=== PATIENT | female | born 1945 | race Caucasian/White ===

== ENCOUNTER → 2016-08-16 | Outpatient (CLI) | payer OTHER ==
--- NOTE | 2016-08-16 13:26 | MA ---
Diagnostic Digital Mammogram Right Breast With iCAD Analysis Reason for examination: Evaluate possible developing nodule in the upper-outer anterior right breast noted on the screening study July 15, 2016. Technique: Oblique and craniocaudal spot compression views are obtained. Also, a true lateral is perf ormed. The examination is processed by the iCAD computer-aided detection system. Comparison to older studies dating back to May 2008. Findings: The abnormality does not persist on diagnostic evaluation and it was probably related to guajardo perimposition of normal glandular elements on the screening study. The appearance of the right breas t on diagnostic assessment has not changed significantly compared to the older studies. Impression: Negative diagnostic mammography. BI-RADS: 1. Recommendation: Resume routine mammographic screening in one year as long as physical examination is negative. A verbal report was given to the patient. [facility] with send a result letter.
== END ==
LOC: FIMAGING 12:36
PROVIDERS: ATTEND Family Medicine
DX: Z12.39 Encounter for other screening for malignant neoplasm of breast (principal); N63 Unspecified lump in breast
CPT/HCPCS: G0206

== ENCOUNTER 2016-11-22 09:33 | Inpatient (IN) | payer OTHER ==
[2016-11-22] MEDS ORDERED: NS 1,000 ML IV ONE (09:41)
--- NOTE | 2016-11-22 09:43 | EDPHY ---
H & P Time Seen by Provider: 11/22/16 09:41 HPI/ROS: CHIEF COMPLAINT: Weakness, fall HISTORY OF PRESENT ILLNESS: Patient is a 71-year-old female who comes to the emergency department via EMS after a fall this morning. She states that she has had body aches and been feeling increasingly weak over the last 5-6 days. Today she fell trying to go to the bathroom. She also has mild diarrhea that is nonbloody. She reports that she is being followed by her primary care doctor for low "CBC" and has follow-up lab work in 3 weeks. she has a history of colon cancer that was resected 10 years ago in [place]. She states she is currently cancer free. She does not have any history of liver or renal disease. She denies recent fevers. No vomiting. She denies any pain or injury from the fall today. She was placed in a cervical collar by EMS. She states that she is extremely weak and feels lightheaded when she tries to stand. She has had swelling and bruising to her lower extremities over the last few days. She is pale in appearance and hypotensive. REVIEW OF SYSTEMS: Constitutional: denies: chills, fever, recent illness, recent injury EENTM: denies: blurred vision, double vision, nose congestion Respiratory: denies: cough, shortness of breath Cardiac: denies: chest pain, irregular heart rate, lightheadedness, palpitations Gastrointestinal/Abdominal: denies: abdominal pain, diarrhea, nausea, vomiting, blood streaked stools Genitourinary: denies: dysuria, frequency, hematuria, pain Musculoskeletal: See HPI Skin: See HPI Neurological: denies: headache, numbness, paresthesia, tingling, dizziness, weakness Hematologic/Lymphatic: denies: blood clots, easy bleeding, easy bruising Immunologic/allergic: denies: HIV/AIDS, transplant EXAM: GENERAL: Well-appearing, well-nourished and in no acute distress. HEAD: Atraumatic, normocephalic. EYES: Pupils equal round and reactive to light, extraocular movements intact, sclera anicteric, conjunctiva are normal. ENT: TMs normal, nares patent, oropharynx clear without exudates. Moist mucous membranes. NECK: Normal range of motion, supple without lymphadenopathy or JVD. LUNGS: Breath sounds clear to auscultation bilaterally and equal. No wheezes rales or rhonchi. HEART: Regular rate and rhythm without murmurs, rubs or gallops. ABDOMEN: Soft, nontender, normoactive bowel sounds. No guarding, no rebound. No masses appreciated. Rectal exam performed, good tone, grossly negative stool BACK: No CVA tenderness, no spinal tenderness, step-offs or deformities EXTREMITIES: Normal range of motion, no pitting or edema. No clubbing or cyanosis. 1+ pitting edema in left leg NEUROLOGICAL: Cranial nerves II through XII grossly intact. Normal speech, normal gait. 5/5 strength, normal movement in all extremities, normal sensation PSYCH: Normal mood, normal affect. SKIN: Diffuse bruising and swelling particularly over the lower extremities but some bruises of various ages throughout upper extremities and back as well. Source: Patient, EMS, Old records Exam Limitations: No limitations - Medical/Surgical History Hx Asthma: No Hx Chronic Respiratory Disease: No Hx Diabetes: No Hx Cardiac Disease: No Hx Renal Disease: No Hx Cirrhosis: No Hx Alcoholism: No - Family History Significant Family History: No pertinent family hx - Social History Smoking Status: Never smoked Alcohol Use: Sober Drug Use: None Constitutional: Initial Vital Signs Temperature (C) 35 C L 11/22/16 09:33 Heart Rate 82 11/22/16 09:33 Respiratory Rate 20 11/22/16 09:33 Blood Pressure 82/52 L 11/22/16 09:33 O2 Sat (%) 93 11/22/16 09:33 O2 Delivery Mode Nasal Cannula O2 (L/minute) 3 Allergies/Adverse Reactions: No Known Allergies Allergy (Unverified 11/22/16 09:49) Home Medications: Medication Instructions Recorded ALPRAZolam [Xanax 0.5 MG (*)] 0.5 mg PO HS 11/22/16 Cholecalciferol Vit D3 [Vitamin D3 1,000 units PO DAILY 11/22/16 (*)] Levothyroxine [Synthroid 75 mcg 75 mcg PO DAILY06 11/22/16 (*)] Benton-3 Fatty Acids [Fish Oil 1000 1,000 mg PO DAILY 11/22/16 mg (*)] Ondansetron Odt [Zofran Odt 4 mg 4 mg PO Q4 PRN #20 tab 11/22/16 (RX)] QUEtiapine FUMARATE [Seroquel 25 100 mg PO HS 11/22/16 mg (*)] lamoTRIgine [LamICTAL 100 MG (*)] 100 mg PO DAILY 11/22/16 Medical Decision Making - Diagnostics Imaging Results: X-ray: chest x-ray was obtained. I viewed the images myself on the PACS system. My interpretation of the images is: Central line in adequate position . The radiologist interpretation is pending. Imaging: Discussed imaging studies w/ call worker Radiologist Procedures: Procedure: Ultrasound guidance: Using the linear probe covered in a sterile sheath, a short axis of the vein was obtained. The vein was completely compressible and was identified as separate from the adjacent non-compressible arterial structure. Under real-time guidance, the introducer needle was observed up to the vein, and then punctured it. These images were saved on the database. Central line placement: The indication for the procedure was obtained. After verbal informed consent from patient; the risks were explained including bleeding, infection, and collapsed lung. Maximal sterile barrier technique was uses including cap, gown, sterile gloves, large sheet, hand washing and chlorhexidine prep. The area anesthetized with 1% lidocaine. The right IJ was punctured with a 19 gauge finder needle, then a wire introducer was placed, a triple-lumen was placed using Seldinger technique. There were no complications. Blood return low pressure, dark blood. The patient tolerated procedure well. CXR results: Pending as interpreted by myself. Radiologist interpretation is pending. The procedure was performed by myself. After reviewing the chest x-ray the patient's central line was pulled back 3 cm and replaced under sterile conditions. Repeat x-ray pending. ED Course/Re-evaluation: The patient's hypotensive. Only 1 IV established. I placed a central line for better access and rapid resuscitation. The patient's hemoglobin is low and transfusion is already been ordered. Her platelets however sufficient so we will hold platelet transfusion at this point. 10:50 a.m. I spoke with Tessa recommended the patient go to [facility] with Dr. Panchal Critical Care Time: Critical care time spent by me, Dr. Rowe exclusive with this patient was 35 minutes, exclusive of the PA time exclusive of procedures. The organ system that was at risk was cardiovascular and I gave IV fluids, blood transfusion and consultation to prevent worsening of the patient's condition - Data Points Laboratory Results: Laboratory Results 11/22/16 10:30 11/22/16 10:25 11/22/16 11/22/16 11/22/16 10:25 10:25 10:25 Haptoglobin 71 mg/dL mg/dL (30 - 200) Total Protein (PEP) 3.8 g/dL L g/dL (6.3-8.2) Albumin (PEP) 2.0 g/dL L g/dL (3.4-4.7) Albumin/Globulin Ratio 1.11 Btreo-3-Hxsregkld 0.5 g/dL H g/dL (0.1-0.3) Bdrte-7-Qpkszbgge 0.5 g/dL L g/dL (0.6-1.0) Beta Globulins 0.4 g/dL L g/dL (0.7-1.2) Gamma Globulins 0.4 g/dL L g/dL (0.6-1.6) PEP Impression Betty Cifuentes MD [employer] Electrophor Betty Cifuentes MD Free [place] LC, Quant 2.56 mg/dL H mg/dL Free Lambda LC, Quant 2.22 mg/dL mg/dL Free [place]/Lambda Ratio 1.15 Patient ABO/Rh A POSITIVE Antibody Screen NEGATIVE ANTWON, Polyspecific NEGATIVE (NEGATIVE) Crossmatch IS Only See Detail Medications Given: Discontinued Medications Sodium Chloride (Ns) 1,000 mls @ 0 mls/hr IV ONCE ONE PRN Reason: Wide Open Stop: 11/22/16 09:42 Last Admin: 11/22/16 09:54 Dose: 1,000 mls Phytonadione 10 mg/ Sodium (Chloride) 51 mls @ 102 mls/hr IV ONCE ONE Stop: 11/23/16 12:47 Last Admin: 11/23/16 13:03 Dose: 51 mls Albumin Human (Flexbumin 25 % (Premix)) 100 mls @ 0 mls/hr IV ONCE ONE PRN Reason: As Directed Stop: 11/23/16 14:01 Last Admin: 11/23/16 14:08 Dose: 100 mls Polyethylene Glycol/Electrolytes (Golytely) 4,000 ml PO ONCE ONE Stop: 11/23/16 13:58 Last Admin: 11/23/16 15:11 Dose: 4,000 ml Departure - Departure Disposition: [facility] Acute Clinical Impression: Anemia Qualifiers: Anemia type: iron deficiency Iron deficiency anemia type: chronic blood loss Qualified Code(s): D50.0 - Iron deficiency anemia secondary to blood loss ( chronic) Hypotension Qualifiers: Hypotension type: other hypotension type Qualified Code(s): I95.89 - Other hypotension GI bleed Qualifiers: GI bleed type/associated pathology: unspecified gastrointestinal hemorrhage type Qualified Code(s): K92.2 - Gastrointestinal hemorrhage, unspecified Condition: Critical
[2016-11-22 09:55] LABS: ADD DIFF? NO; ADD MORPH? YES; ADD SCAN? NO
[2016-11-22 09:59] LABS: ABSOLUTE IMMATURE GRANULOCYTES 0.04 10^3/uL (0.00-0.10); ATYPICAL LYMPHOCYTE FLAG 0 (0-99); FRAGMENT RBC FLAG 20 (0-99); LEFT SHIFT FLG 0 (0-99); LIPEMIA HEMOLYSIS FLAG 80 (0-99); MEAN CELL HEMOGLOBIN 30.5 pg (27.9-34.1); MEAN CELL HEMOGLOBIN CONCENTR. 30.8 g/dL (32.4-36.7); MEAN CELL VOLUME 98.9 fL (81.5-99.8); MEAN PLATELET VOLUME 11.7 fL (8.7-11.7); PLATELET CLUMPS FLAG 0 (0-99); PLATELET COUNT 104 10^3/uL (150-400); RED BLOOD CELL COUNT 1.87 10^6/uL (4.18-5.33); RED CELL DISTRIBUTION WIDTH 15.6 % (11.5-15.2)
[2016-11-22 10:02] LABS: HEMATOCRIT 18.5 % (38.0-47.0)
[2016-11-22 10:03] LABS: HEMOGLOBIN 5.7 g/dL (12.6-16.3)
[2016-11-22 10:04] LABS: APTT 26.9 SEC (23.0-38.0); INR 1.59 (0.83-1.16)
[2016-11-22 10:39] LABS: MACROCYTES 1+; MICROCYTES 1+; PLATELET ESTIMATE DECREASED (ADEQ); POLYCHROMASIA 1+
[2016-11-22 11:08] LABS: ANION GAP 10 mEq/L (8-16); CALCIUM 6.7 mg/dL (8.5-10.4); CARBON DIOXIDE 17 mEq/l (22-31); CHLORIDE 108 mEq/L (97-110); CREATININE 1.5 mg/dL (0.6-1.0); ETHANOL SERUM < 10 mg/dL (0-10); GLOMERULAR FILTRATION RATE 34; GLUCOSE 101 mg/dL (70-100); POTASSIUM 3.3 mEq/L (3.5-5.2); SODIUM 135 mEq/L (134-144)
[2016-11-22] MEDS ORDERED: ONDANSETRON 4 MG/2 ML VIAL IVP PRN (11:40)
[2016-11-22] MEDS ORDERED: ONDANSETRON DISINTEGRATING 4 MG TAB PO PRN (11:40)
[2016-11-22 11:48] LABS: HEMATOCRIT 18.5 % (38.0-47.0)
--- NOTE | 2016-11-22 11:53 | PDGENHP ---
History and Physical - Chief Complaint Acute fall - History of Present Illness PCP: Dr. Mixon HPI: 71-year-old female presenting with acute fall characterized as mechanical with associated lightheadedness, generalized weakness, myalgias with the onset of the fall on the day of presentation and no trauma reported by the patient. She reports that this occurred in the context of experiencing myalgias approximately 5-6 days ago with resultant nonproductive cough, weakness, loose bowel movements, anorexia. She denies any black or bloody bowel movements. She denies any hemoptysis or hematemesis. She reports that prior to her onset of symptoms she had otherwise been feeling well. She had made recent Synthroid dose adjustments couple months ago at the direction of her primary care provider. She has also been told that her blood counts were somewhat abnormal several months ago and her primary care provider has been periodically monitoring. The patient is unclear as to which cell lines were unusual but our lab data demonstrates that she had a thrombocytopenia with a stable platelet count around 100,000, but no e/o anemia. The patient does report that her lightheadedness is exacerbated by standing and this is what appeared to have precipitated her mechanical fall. Her diet has been particularly poor and is the results of a poor appetite, resulting in only a scant amount of solids and liquids over the past couple days. She has also noted diffuse ecchymoses which have been worsening over the past several months. History Information - Allergies/Home Medication List Allergies/Adverse Reactions: No Known Allergies Allergy (Unverified 11/22/16 09:49) Home Medications: ALPRAZolam 11/22/16 [Last Taken Unknown] LEVOTHYROXINE SODIUM 11/22/16 [Last Taken Unknown] LaMICtal 11/22/16 [Last Taken Unknown] Seroquel 11/22/16 [Last Taken Unknown] I have personally reviewed and updated: family history, medical history, social history, surgical history - Past Medical History Additional medical history: Hypothyroidism. Bipolar disease, unclear type. Colon cancer diagnosed approximately 10 years ago, surgically cured, last surveillance 1 year ago with colonoscopy and CT imaging in [place] - Surgical History Additional surgical history: Colon surgery - Family History Additional family history: No family history of venous thromboembolism - Social History Smoking Status: Former smoker Alcohol Use: Sober Drug Use: None Additional social history: Independent in her ADLs, moved to [place] from [place] approximately 1 year Review of Systems ROS: 10pt was reviewed & negative except for what was stated in HPI & below Constitutional: Reports: weakness, other (Lightheadedness, anorexia) Respiratory: Reports: cough Physical Exam Temp Pulse Resp BP Pulse Ox 35 C L 82 15 76/47 L 94 11/22/16 09:33 11/22/16 10:00 11/22/16 10:00 11/22/16 10:00 11/22/16 10:00 Constitutional: no apparent distress, appears nourished, not in pain, other ( Pale-appearing) Eyes: PERRL, anicteric sclera, EOMI, pale conjunctiva Ears, Nose, Mouth, Throat: hearing normal, other (Tacky mucous membranes) Cardiovascular: tachycardia (Intermittently), edema (Left lower extremity 1+), No systolic murmur, No irregularly irregular Respiratory: no respiratory distress, no rales or rhonchi, clear to auscultation Gastrointestinal: normoactive bowel sounds, soft, non-tender abdomen, no palpable masses Skin: other (Scattered, dense ecchymoses over her bilateral upper extremities, dorsum is of her wrists, densely in the lower extremities, left greater than right) Musculoskeletal: full muscle strength, no muscle tenderness, normal joint ROM, no joint effusions Neurologic: AAOx3, sensation intact bilaterally, No weakness (Motor strength is objectively 5/5 bilateral upper and lower extremities), No facial droop Psychiatric: interacting appropriately, not anxious, not encephalopathic, thought process linear Lab Data & Imaging Review 11/22/16 09:30 11/22/16 10:25 WBC 4.05 10^3/uL (3.80-9.50) 11/22/16 09:30 RBC 1.87 10^6/uL (4.18-5.33) L 11/22/16 09:30 Hgb 5.7 g/dL (12.6-16.3) L* 11/22/16 09:30 Hct 18.5 % (38.0-47.0) L 11/22/16 09:30 MCV 98.9 fL (81.5-99.8) 11/22/16 09:30 MCH 30.5 pg (27.9-34.1) 11/22/16 09:30 MCHC 30.8 g/dL (32.4-36.7) L 11/22/16 09:30 RDW 15.6 % (11.5-15.2) H 11/22/16 09:30 Plt Count 104 10^3/uL (150-400) L 11/22/16 09:30 MPV 11.7 fL (8.7-11.7) 11/22/16 09:30 Neut % (Auto) 75.9 % (39.3-74.2) H 11/22/16 09:30 Lymph % (Auto) 16.0 % (15.0-45.0) 11/22/16 09:30 [place] % (Auto) 6.4 % (4.5-13.0) 11/22/16 09:30 Eos % (Auto) 0.5 % (0.6-7.6) L 11/22/16 09:30 Baso % (Auto) 0.2 % (0.3-1.7) L 11/22/16 09:30 Nucleat RBC Rel Count 0.0 % (0.0-0.2) 11/22/16 09:30 Absolute Neuts (auto) 3.07 10^3/uL (1.70-6.50) 11/22/16 09:30 Absolute Lymphs (auto) 0.65 10^3/uL (1.00-3.00) L 11/22/16 09:30 Absolute Monos (auto) 0.26 10^3/uL (0.30-0.80) L 11/22/16 09:30 Absolute Eos (auto) 0.02 10^3/uL (0.03-0.40) L 11/22/16 09:30 Absolute Basos (auto) 0.01 10^3/uL (0.02-0.10) L 11/22/16 09:30 Absolute Nucleated RBC 0.00 10^3/uL (0-0.01) 11/22/16 09:30 Immature Gran % 1.0 % (0.0-1.1) 11/22/16 09:30 Immature Gran # 0.04 10^3/uL (0.00-0.10) 11/22/16 09:30 Platelet Estimate DECREASED (ADEQ) L 11/22/16 09:30 Polychromasia 1+ H 11/22/16 09:30 Microcytic Cells 1+ H 11/22/16 09:30 Oval Macrocytes 1+ H 11/22/16 09:30 PT 19.0 SEC (12.0-15.0) H 11/22/16 09:30 INR 1.59 (0.83-1.16) H 11/22/16 09:30 APTT 26.9 SEC (23.0-38.0) 11/22/16 09:30 Sodium 135 mEq/L (134-144) 11/22/16 10:25 Potassium 3.3 mEq/L (3.5-5.2) L 11/22/16 10:25 Chloride 108 mEq/L (97-110) 11/22/16 10:25 Carbon Dioxide 17 mEq/l (22-31) L 11/22/16 10:25 Anion Gap 10 mEq/L (8-16) 11/22/16 10:25 BUN 42 mg/dL (7-23) H 11/22/16 10:25 Creatinine 1.5 mg/dL (0.6-1.0) H 11/22/16 10:25 Estimated GFR 34 11/22/16 10:25 Glucose 101 mg/dL (70-100) H 11/22/16 10:25 Calcium 6.7 mg/dL (8.5-10.4) L 11/22/16 10:25 Stool Occult Bld Scrn POSITIVE (NEGATIVE) H 11/22/16 Unknown Ethyl Alcohol < 10 mg/dL (0-10) 11/22/16 10:25 Patient ABO/Rh A POSITIVE 11/22/16 10:25 Antibody Screen NEGATIVE 11/22/16 10:25 Crossmatch IS Only See Detail 11/22/16 10:25 Visualized and Interpreted Chest x-ray results: Yes Chest X-Ray results: no infiltrate Assessment & Plan Assessment: 71-year-old female presenting with acute hypotension in the setting of anemia, resulting in acute kidney injury Plan: 1. Hypotension. Acute, new problem this provider, further workup indicated. Unclear whether this is secondary to hypovolemia versus rapid blood loss versus cardiogenic. The patient does not appear to have evidence of active infection but her recent myalgias and weakness may be subtle signs of infection. -send venous lactic acid -send blood cultures, urinalysis -central venous catheter placed in the emergency department -she has received IV normal saline boluses, adjusted to blood and then normal saline at thereafter -get echocardiogram, left lower extremity ultrasound -monitor for evidence of active blood loss, which would necessitate emergent endoscopy 2. Anemia. Acute, new problem this provider, further workup indicated. Mildly macrocytic, fecal occult blood positive but without any reported signs of blood loss -reviewed outside records including 09/23/2016 lab studies demonstrating hemoglobin level of 14 -send iron studies, retic count, B12 level prior to transfusion -discussed with Dr. Rowe in the emergency department, he has ordered 2 units of packed red blood cells to be administered via central line -repeat CBC at 6:00 p.m. and transfuse for hemoglobin level less than 7 or evidence of active blood loss -discussed with Dr. Barrios, appreciate Hematology consultation -discussed with Dr. Garrett, appreciate Gastroenterology consultation, will place on IV PPI twice daily until it is determined whether the patient is experiencing anemia from GI losses, keep NPO 3. Acute kidney injury. Creatinine level 1.5, baseline is normal, provide normal saline and blood as noted above, monitor strict I&Os, daily weights, repeat serum creatinine level in a.m., avoid aggressive potassium supplementation Diet. NPO with sips Prophylaxis. High risk patient, SCDs, pharm contraindicated in the setting of possible bleeding Code. Full per patient, sinus MPOA Disposition. Anticipated discharge is uncertain this time, anticipated length stay is greater than 48 hours warranting inpatient admission status for acute hypotension with potential shock, anemia, unstable vitals, requiring step-down unit level of care as well as further workup as outlined above.
[2016-11-22 12:08] LABS: % SATURATION 12 % (20-55); TOTAL IRON BINDING CAPACITY 208 ug/dL (260-490)
[2016-11-22 12:35] LABS: FERRITIN - BCH 79.9 ng/mL (6.2-264.0)
[2016-11-22 12:36] LABS: APTT 26.9 SEC (23.0-38.0); INR 1.59 (0.83-1.16); PLATELET COUNT 104 10^3/uL (150-400)
[2016-11-22 12:41] LABS: ALANINE AMINOTRANSFERASE 20 IU/L (9-52); ALBUMIN 1.9 g/dL (3.5-5.0); ALKALINE PHOSPHATASE 46 IU/L (38-126); ASPARTATE AMINOTRANSFERASE 11 IU/L (14-46); BILIRUBIN-CONJUGATED 0.6 mg/dL (0.0-0.5); BILIRUBIN-UNCONJUGATED 0.4 mg/dL (0.0-1.1); LACTATE DEHYDROGENASE 512 IU/L (313-618); TOTAL PROTEIN 3.8 g/dL (6.3-8.2)
[2016-11-22] MEDS ORDERED: ONDANSETRON DISINTEGRATING 4 MG TAB ONE (12:57)
[2016-11-22 13:03] LABS: FIBRINOGEN 442 mg/dL (214-456)
--- NOTE | 2016-11-22 13:15 | GCON ---
[f rep st] CONSULTATION HISTORY OF PRESENT ILLNESS: I was asked to evaluate this very pleasant 71-year- old female, who presents with fatigue and severe anemia. To review, this patient has not been feeling well for the last couple of weeks. This has been characterized as fatigue and some myalgias. She has also had some weight loss and anorexia. She had a fall today and presented to the emergency room. She has also noticed the development of some ecchymosis and swelling over her lower extremities and also her arms. When she arrived in the emergency room, her hemoglobin was 5.7 with hematocrit of 18. As of 09/23/2016, her hemoglobin was normal at 14.4. MCV was 98, it was previously a bit high at 101. Stool was positive for occult blood. Reticulocyte count was elevated at 8.44, corrected was 3.5. White count 4.05 with a slightly leftward shifted differential. She has had mild thrombocytopenia since July of 2016 with platelets in the 100, 000 or so range. Of note, she has a history of colon carcinoma diagnosed 5-10 years ago, resected without any type of adjuvant treatment. She is not sure what part of the colon it was in. She had a colonoscopy about a year ago. Other medical issues include hypothyroidism, bipolar disease. She is a former smoker. Does not drink alcohol. She is accompanied by, I believe, her son. Recently moved to [place] from [place]. REVIEW OF SYSTEMS: Negative for 10 systems except as discussed in the HPI. PHYSICAL EXAMINATION: GENERAL: Today, she is a very pale-appearing female. VITAL SIGNS: Temperature is 35, pulse 82, respiratory rate 15, blood pressure 76/47, pulse ox 94. HEENT: She is not icteric. Mucous membranes are somewhat dry. LUNGS: Clear. CARDIAC: Shows a tachycardia without murmurs, clicks, or added sounds. ABDOMEN: Shows normal bowel sounds, is nontender without masses. SKIN: Remarkable for scattered ecchymoses over both her arms and her legs. She has some swelling in her lower extremities, left greater than right. ADDITIONAL LABORATORIES: In addition to her CBC shows that her INR is a bit elevated at 1.59. Sodium 135, potassium 3.3, creatinine is 1.5. Iron currently is 25, TIBC 208, percent sat 12%. TSH, I should note, from a couple months ago was markedly elevated at 25. IMPRESSION: Patient presenting with a very significant anemia. This is new onset, over at least the last couple of months. She also has heme-positive stool and multiple ecchymoses with mild thrombocytopenia and a mild coagulopathy , as well as significant hypoalbuminemia, implying perhaps a more chronic process. The exact etiology is unclear. I am most suspicious of some type of subacute blood loss and I note that a GI consult has been obtained and I think she needs endoscopies when she is stabilized. She does have an elevated reticulocyte count, which could just be a compensatory mechanism, but I think we should rule out hemolysis and I have ordered an LDH, liver function tests, direct Sia, and a haptoglobin. I think it is probably fairly unlikely she has an underlying bone marrow dyscrasia given her unremarkable CBC a couple of months ago. This needs to be kept in mind. Additional labs that are pending include a repeat TSH to rule out myxedema. I am also going to check a serum protein electrophoresis and serum free light chain analysis. B12 and ferritin are also pending. If the situation remains unclear, further evaluation including a bone marrow biopsy and imaging might be reasonable. I note that a chest x-ray is unremarkable, as is a head CT scan, and a cervical spine CT shows no acute changes, although certainly degenerative changes are noted. /[id number]/MODL MTDD
[2016-11-22] MEDS: NS 1,000 ML IV SCH (14:52)
[2016-11-22] MEDS: PANTOPRAZOLE SODIUM 40 MG in NS 100 ML IV SCH ×2 (14:58→21:14)
--- NOTE | 2016-11-22 15:05 | ECHO ---
[id number] + + [address] : : [place] [address] : : [phone] + + Adult Echocardiographic Report + --------+ :Name: MICHELLE ALMAZANnjbryce Date: 11/22/2016 12:23 PM : : Hospital Admission Number: [id number] Locati on: ER11: :: 1945 Gender: Female Height: 66 in : :Age: 71 yrs Race: WH Weight: 138 lb : :Reason For Study: Eval LV Fx : : BSA: 1.7 meter s2 : :History: SOB, Hypotension, Falls, Low blood count : + --------+ MMode/2D Measurements \T\ Calculations IVSd: 0.78 cm LVIDd: 4.3 cm FS: 42.9 % Ao root diam: 2.9 cm LVPWd: 0.81 cm LVIDs: 2.5 cm EDV(Teich): 84.9 ml ACS: 1.0 cm ESV(Teich): 21.9 ml EF(Teich): 74.2 % LVOT diam: 1.9 cm LVOT area: 2.8 cm2 Normal Measurement Values: + + :LVIDd (3.5-5.7cm) IVSd (0.6-1.1cm) LVPWd (0.6-1.1cm) Aortic Root (2.0-3.7cm)Left Atrium (1.5-4.0cm): :LV Vol(d) (76-115ml) LV Vol(s) (29-48ml) Ejec Fraction (50-65%)PV Lucio (0.6- 1.2m/s) TV Lucio (0.4-1.0m/s) : :MV E Lucio (0.8-1.0m/s)MV A Lucio (0.3-1.0m/s)LVOT Lucio (0.7-1.2m/s) Asc Ao Lucio ( 0.9-1.8m/s) : + + Doppler Measurements \T\ Calculations MV E max lucio: Ao V2 max: LV V1 max: SV(LVOT): 77.0 cm/sec 164.0 cm/sec 59.4 cm/sec 58.4 ml MV A max lucio: Ao max P.8 mmHg LV V1 max P.4 cm/sec Ao mean P.0 mmHg 1.4 mmHg MV E/A: 0.87 Ao V2 mean: LV V1 mean P.0 cm/sec 1.0 mmHg Ao V2 VTI: 40.2 cm LV V1 mean: 45.7 cm/sec MARLON(I,D): 1.5 cm2 LV V1 VTI: 20.6 cm MARLON(V,D): 1.0 cm2 PA V2 max: TR max lucio: 71.9 cm/sec 326.0 cm/sec PA max P.1 mmHg TR max P.5 mmHg RAP systole: 5.0 mmHg RVSP(TR): 47.5 mmHg Left Ventricle The left ventricle is normal in size. There is normal left ventricular wall thickness. The left ventricular ejection fraction is normal. There is Doppler evidence for diastolic dysfunction. Ejection Fraction = 74%. The left ventricular wall motion is normal. Right Ventricle The right ventricle is normal in size and function. Atria The left atrial size is normal. Right atrial size is normal. Mitral Valve The mitral valve is normal in structure and function. There is no mitral valve stenosis. There is no mitral regurgitation noted. Tricuspid Valve There is mild tricuspid regurgitation. Right ventricular systolic pressure is 45mmHg. There is Doppler evidence for mild pulmonary hypertension. Aortic Valve There is mild aortic valve calcification. There is no aortic stenosis. The Ao V2 max is 1.6 m/sec. There is no aortic insufficiency. Pulmonic Valve The pulmonic valve is normal in structure and function. There is no pulmonic valvular regurgitation. Great Vessels The aortic root is normal size. Pericardium/Pleural There is no pericardial effusion. There is a fat pad seen. Conclusion A complete two-dimensional transthoracic echocardiogram was performed (2D, M-mode, Doppler and color flow Doppler). The left ventricular ejection fraction is normal. There is Doppler evidence for diastolic dysfunction. Ejection Fraction = 74%. The left ventricular wall motion is normal. The right ventricle is normal in size and function. The left atrial size is normal. The mitral valve is normal in structure and function. There is mild tricuspid regurgitation. Right ventricular systolic pressure is 45mmHg. There is Doppler evidence for mild pulmonary hypertension. There is mild aortic valve calcification. The Ao V2 max is 1.6 m/sec There is no pericardial effusion. There is a fat pad seen. Final Reading Physician: Desmond Lou signed on 11/22/2016 03:04 PM Ordering Physician: Manuel Panchal Performed By: Garth Mata, CHRISTOPHERCS
[2016-11-22 17:47] LABS: % IMMATURE GRANULYOCYTES 2.2 % (0.0-1.1); ABSOLUTE IMMATURE GRANULOCYTES 0.07 10^3/uL (0.00-0.10); ADD DIFF? NO; ADD MORPH? NO; ADD SCAN? NO; ATYPICAL LYMPHOCYTE FLAG 20 (0-99); FRAGMENT RBC FLAG 0 (0-99); HEMOGLOBIN 8.1 g/dL (12.6-16.3); LEFT SHIFT FLG 0 (0-99); LIPEMIA HEMOLYSIS FLAG 90 (0-99); MEAN CELL HEMOGLOBIN 31.6 pg (27.9-34.1); MEAN CELL HEMOGLOBIN CONCENTR. 33.8 g/dL (32.4-36.7); MEAN CELL VOLUME 93.8 fL (81.5-99.8); MEAN PLATELET VOLUME 10.8 fL (8.7-11.7); PLATELET CLUMPS FLAG 10 (0-99); PLATELET COUNT 52 10^3/uL (150-400); RED BLOOD CELL COUNT 2.56 10^6/uL (4.18-5.33); RED CELL DISTRIBUTION WIDTH 16.6 % (11.5-15.2)
[2016-11-22] MEDS: ALPRAZolam 0.5 MG TAB PO SCH (21:13)
[2016-11-22] MEDS: QUEtiapine FUMARATE 25 MG TAB PO SCH (21:14)
[2016-11-23 00:03] LABS: HEMATOCRIT 20.9 % (38.0-47.0); LIPEMIA HEMOLYSIS FLAG 80 (0-99); MEAN CELL HEMOGLOBIN 31.4 pg (27.9-34.1); MEAN CELL HEMOGLOBIN CONCENTR. 33.5 g/dL (32.4-36.7); MEAN CELL VOLUME 93.7 fL (81.5-99.8); PLATELET CLUMPS FLAG 0 (0-99); RED BLOOD CELL COUNT 2.23 10^6/uL (4.18-5.33); RED CELL DISTRIBUTION WIDTH 17.2 % (11.5-15.2)
[2016-11-23 00:05] LABS: PLATELET COUNT 49 10^3/uL (150-400)
[2016-11-23] MEDS: ACETAMINOPHEN 325 MG TAB PO PRN (00:14)
[2016-11-23 00:56] LABS: PLATELET ESTIMATE DECREASED (ADEQ)
[2016-11-23 04:35] LABS: ALANINE AMINOTRANSFERASE 27 IU/L (9-52); ALBUMIN 1.8 g/dL (3.5-5.0); ALKALINE PHOSPHATASE 43 IU/L (38-126); ANION GAP 7 mEq/L (8-16); ASPARTATE AMINOTRANSFERASE 18 IU/L (14-46); BILIRUBIN,TOTAL 1.2 mg/dL (0.1-1.4); CALCIUM 6.5 mg/dL (8.5-10.4); CARBON DIOXIDE 18 mEq/l (22-31); CHLORIDE 111 mEq/L (97-110); CREATININE 1.2 mg/dL (0.6-1.0); GLOMERULAR FILTRATION RATE 44; GLUCOSE 67 mg/dL (70-100); MAGNESIUM 2.2 mg/dL (1.6-2.3); POTASSIUM 3.4 mEq/L (3.5-5.2); SODIUM 136 mEq/L (134-144); TOTAL PROTEIN 3.7 g/dL (6.3-8.2)
[2016-11-23 04:37] LABS: % IMMATURE GRANULYOCYTES 1.8 % (0.0-1.1); ABSOLUTE IMMATURE GRANULOCYTES 0.04 10^3/uL (0.00-0.10); ADD DIFF? NO; ADD MORPH? YES; ADD SCAN? NO; ATYPICAL LYMPHOCYTE FLAG 0 (0-99); FRAGMENT RBC FLAG 0 (0-99); HEMATOCRIT 19.8 % (38.0-47.0); LEFT SHIFT FLG 0 (0-99); LIPEMIA HEMOLYSIS FLAG 80 (0-99); MEAN CELL HEMOGLOBIN 31.4 pg (27.9-34.1); MEAN CELL HEMOGLOBIN CONCENTR. 33.3 g/dL (32.4-36.7); MEAN CELL VOLUME 94.3 fL (81.5-99.8); MEAN PLATELET VOLUME 10.6 fL (8.7-11.7); PLATELET CLUMPS FLAG 0 (0-99); RED CELL DISTRIBUTION WIDTH 17.5 % (11.5-15.2)
[2016-11-23 04:41] LABS: HEMOGLOBIN 6.6 g/dL (12.6-16.3); PLATELET COUNT 40 10^3/uL (150-400)
[2016-11-23 05:04] LABS: CORTISOL-AM 11.3 ug/dL (4.5-22.7)
[2016-11-23 05:30] LABS: INR 1.89 (0.83-1.16); PROTIME(PATIENT) 21.8 SEC (12.0-15.0)
[2016-11-23 05:55] LABS: MACROCYTES 1+; MICROCYTES 1+
[2016-11-23 05:56] LABS: PLATELET ESTIMATE DECREASED (ADEQ); POLYCHROMASIA 1+
[2016-11-23] MEDS: LEVOTHYROXINE 75 MCG TAB PO SCH (05:57)
[2016-11-23] MEDS ORDERED: NOREPINEPHRINE/NS 4 MG/500 ML BAG IV ONE (10:25)
[2016-11-23] MEDS: PANTOPRAZOLE SODIUM 40 MG in NS 100 ML IV SCH ×2 (10:49→22:17)
[2016-11-23] MEDS: lamoTRIgine 100 MG TAB PO SCH (10:58)
[2016-11-23] MEDS: CHOLECALCIFEROL VIT D3 1,000 UNITS TAB PO SCH (10:58)
[2016-11-23] MEDS: OMEGA-3 FATTY ACIDS 1,000 MG CAP PO SCH (10:59)
[2016-11-23] MEDS ORDERED: NOREPINEPHRINE/NS 500 ML IV SCH (11:00)
--- NOTE | 2016-11-23 11:02 | GCON ---
[f rep st] CONSULTATION DATE OF CONSULTATION: 11/22/2016 CHIEF COMPLAINT: Anemia. I am asked to see this patient in consultation by Dr. Panchal for a chief complaint of anemia. HISTORY OF PRESENT ILLNESS: The patient is a 71-year-old, somewhat poor historian, who has been fee ling weak for the past week or so, and then had a fall, presented to the emergency room, and was fou nd to have significantly low hematocrit at 18%. She states that she has been followed for a "low blo od count" by her PCP for the past few months, and had been experiencing increasing malaise and myalg ias for the past 5-6 days. The patient denies any nausea and vomiting. She has had no hematemesis. S he has had no diarrhea or constipation. No blood in her stools or melena. No significant abdominal p ain. She does have a history of colon cancer. She is unclear of the date. It has been probably at [facility] 5 years since her surgery. She states that she did move to [place], and had a colonoscopy perhap s about a year ago, was told it was "clean," and does not recall when she was told to have another c olonoscopy. The patient does admit to drinking alcohol. She states she quit 2 years ago, and then kaminski d a relapse in February after the of her , and then she said she quit than. She tells me chato webster has had no history of liver disease or issues with alcohol withdrawal. She does have several bruis es throughout her body. ALLERGIES: No known allergies. MEDICATIONS: Home medications are alprazolam, levothyroxine, Lamictal, Seroquel. PAST MEDICAL HISTORY: Notable for hypothyroidism, bipolar disease, colon cancer, status post surger y, colonoscopy, perhaps in the past year, history of alcohol use. SOCIAL HISTORY: As above. History of alcohol use, with a relapse in February, but sober since then. FAMILY HISTORY: No known family history of colon cancer. REVIEW OF SYSTEMS: I have performed a complete review of systems, which is negative, except for the pertinent positives and negatives noted in the HPI. PHYSICAL EXAMINATION: VITAL SIGNS: Patient is afebrile at 35.6, BP 107/82, pulse 77. CONSTITUTIONAL : She is alert and oriented x3. EYES: Show no scleral icterus. HENT: No mouth lesions. CARDIOVASCULA R: Regular rate and rhythm. CHEST: Clear to auscultation bilaterally. ABDOMEN: Has positive bowel so unds. I can detect no hepatosplenomegaly or ascites. Soft and nontender. She has a midline surgical scar. NEUROLOGIC: No asterixis. SKIN: There are a few spider angiomata noted on her chest. LABORATORY DATA: Notable for a BUN and creatinine of 42 and 1.5. Pro time is slightly elevated at 1 9, with an INR of 1.59. White count is 4, hemoglobin is 5.7, hematocrit 18.8, platelets are 104. She has low iron at 25 instead of 12%. She is Heme-positive. LFTs show alkaline phosphatase of 46, ALT 11, AST 20, albumin is low at 1.9, bilirubin is normal at 1.0. ASSESSMENT: 1. Significant anemia. I suspect that she may have an acute on chronic process, as she does have ir on deficiency. This would suggest that there has been at least some chronic ongoing blood loss, with acute exacerbation. Unclear if this may be hematologic or from bleeding into bruising, although, cl inically, she describes no acute GI bleeding. She does have Heme-positive stools, would again suppor t a slow blood loss from the GI tract. Differential diagnosis would include polyps, postsurgical ulc er, anastomosis, AVMs, gastritis, peptic ulcer disease. 2. Low albumin, in the setting of a slightly elevated prothrombin time, and history of drinking. I have some concerns that patient may have some underlying liver disease, although no evidence of acut e decompensation, as her bilirubin is normal. She does have spider angiomata, but otherwise no stigm kaity of liver disease, but I would recommend an ultrasound to assess for evidence of chronic liver di sease such as a nodular liver or fatty liver. Did discuss with the patient about the benefit of doin g an upper and lower endoscopy for evaluation of her Heme-positive stools, in the setting of iron de ficiency, although because she is not having signs of active GI bleeding, this does not need to be d one acutely. Would suggest we consider doing this, this hospitalization, and offer to do it tomorrow . However, patient states that she does not feel able to tolerate a prep at this time, but we can re -discuss this again in the morning. PLAN: We will monitor her hemoglobin and hematocrit overnight after transfusion, and monitor for an y active sites of GI bleeding. If she does well, can prep tomorrow for an upper and lower endoscopy, but we will reassess in the morning. However, may consider urgent upper endoscopy tonight if signs of active bleeding. We will check a right upper quadrant ultrasound. Agree with PPI, and follow hemo globin and hematocrit. Thank you for this consult. /[id number]/MODL
[2016-11-23] MEDS: NOREPINEPHRINE/NS 500 ML IV SCH (11:14)
[2016-11-23] MEDS ORDERED: PHYTONADIONE 10 MG in NS 50 ML IV ONE (12:18)
[2016-11-23] MEDS ORDERED: ALBUMIN 25% 50 ML SOLN IV ONE (12:22)
--- NOTE | 2016-11-23 12:24 | SOAPPROG ---
SOAP Progress Note Assessment/Plan: Assessment: 1. severe anemia, normochromic 2. pancytopenia, relatively recent onset 3. history colon cancer 4. past history of alcohol abuse, denies recent 5. heme positive stools 6. protein calorie malnutrition 7. Ecchymosis 8. elevated inr Plan:Endoscopies today. Transfuse 1 unit prbc and 1 unit plts given drop in platelet count and possibility of ongoing bleed. Vitamin k to try to correct coagulopathy 11/23/16 12:20 Subjective: Very alert, says she feels better, hungry Objective: Vital Signs Temp Pulse Resp BP Pulse Ox 97.8 F 61 12 77/57 L 100 11/23/16 08:16 11/23/16 11:08 11/23/16 11:08 11/23/16 11:08 11/23/16 11:08 Laboratory Results 11/23/16 04:00 11/23/16 04:00 11/22/16 11/23/16 11/24/16 05:59 05:59 05:59 Intake Total 6020 Output Total 250 Balance 5770 PT 21.8 SEC (12.0-15.0) H 11/23/16 04:00 INR 1.89 (0.83-1.16) H 11/23/16 04:00 ICD10 Worksheet Patient Problems: Problems Problem Status Onset Anemia Acute GI bleed Acute Hypotension Acute
[2016-11-23 13:06] LABS: % IMMATURE GRANULYOCYTES 1.4 % (0.0-1.1); ABSOLUTE IMMATURE GRANULOCYTES 0.04 10^3/uL (0.00-0.10); ADD DIFF? NO; ADD MORPH? NO; ADD SCAN? NO; ATYPICAL LYMPHOCYTE FLAG 0 (0-99); FRAGMENT RBC FLAG 0 (0-99); HEMATOCRIT 29.4 % (38.0-47.0); HEMOGLOBIN 10.1 g/dL (12.6-16.3); LEFT SHIFT FLG 0 (0-99); LIPEMIA HEMOLYSIS FLAG 90 (0-99); MEAN CELL HEMOGLOBIN 31.4 pg (27.9-34.1); MEAN CELL HEMOGLOBIN CONCENTR. 34.4 g/dL (32.4-36.7); MEAN CELL VOLUME 91.3 fL (81.5-99.8); PLATELET CLUMPS FLAG 0 (0-99); PLATELET COUNT 89 10^3/uL (150-400); RED BLOOD CELL COUNT 3.22 10^6/uL (4.18-5.33); RED CELL DISTRIBUTION WIDTH 16.7 % (11.5-15.2)
--- NOTE | 2016-11-23 13:28 | GCON ---
[f rep st] CONSULTATION PULMONARY CONSULT. HISTORY OF PRESENT ILLNESS: The patient is a 71-year-old female, who was admitted yesterday after a mechanical fall and weakness, and was found to have pancytopenia. Though I cannot confirm this par t of her history I am told that she has had difficulty with mild thrombocytopenia and mild neutropen ia for some months, was being followed closely and the etiology was uncertain. Apparently yesterday she went to get up and was unable to hold herself on her legs, and fell without any head injury. S he did have lightheadedness prior to that injury and was found to be mildly hypotensive when she arr ived in the emergency department. She had no nausea or vomiting, no emesis, no diarrhea, no bloody stools, no abdominal pain, but there were some concerns for potential GI bleeding. She has a histor y of colon cancer some 10 years ago, and had a curative resection at that time. She denies any feve rs, chills or sweats, said she did have a poor appetite and noted worsening ecchymoses over the last several months. PAST MEDICAL HISTORY: Includes hypothyroidism, bipolar disease, colon cancer as described above, wi th recent screening that was all negative. PAST SURGICAL HISTORY: Includes hemicolectomy. FAMILY HISTORY: Noncontributory at this point. SOCIAL HISTORY: She is a lifelong nonsmoker, no significant alcohol or IV drug use. MEDICATIONS: Her outpatient medications include Xanax, Synthroid, Lamictal, and Seroquel. PHYSICAL EXAM: VITAL SIGNS: This morning her blood pressure was 77/57, heart rate of 61, oxygen sa turation 100% on 2 L, and a respiratory rate of 12. GENERAL: She was awake and alert, oriented x3, in no apparent distress, able to speak in full sentences without using accessory muscles for breath ing. HEENT: Pupils equally round, reactive to light, nonicteric, and noninjected. Mucous membrane s are moist without obvious petechiae, erythema or exudates. NECK: Supple without adenopathy or ju gular vein distention. RESPIRATORY: Breath sounds are clear to auscultation bilaterally without wh eezes, rhonchi or rales. HEART: Regular rate and rhythm without murmurs, rubs, gallops. ABDOMEN: Soft, nontender, nondistended without palpable masses or pulsations. EXTREMITIES: Show no clubbin g, cyanosis, or edema. There were areas of ecchymoses. NEUROLOGIC: Nonfocal, including cranial ne rves and deep tendon reflexes. LABORATORY: Her white count today is 2.2, hematocrit was 19.8 with a hemoglobin of 6.6, platelets o f only 40. Her INR was 1.89, and she is not taking anticoagulants. Sodium is 136, potassium 3.4, c hloride 111, bicarb 18, BUN is 35, creatinine 1.2, it was 1.5 yesterday. Calcium is 6.5. AST and A LT were both normal. Total protein on arrival was 3.8, with an albumin of 1.9. TSH is 3.5, random morning cortisol was 11. Occult blood was positive, alcohol was negative. She tested negative for flu. A chest x-ray was unremarkable. ASSESSMENT AND PLAN: 1. Hypotension in a patient with pancytopenia. I do not see evidence of active bleeding at this ti me, but her blood pressure certainly remains low. The differential includes cardiogenic as well as adrenal insufficiency, or hypovolemia. At this point I recommended she undergo a NICOM, and replace her with albumin to increase her blood pressure, mean arterial pressure, to greater than 65. In th e absence of that she should get norepinephrine to maintain that pressure until we can better identi fy the source, though hypovolemia is high on my list. 2. Pancytopenia. She has a Hematology consult that is currently following. I am concerned about m ultiple myeloma in the setting of renal failure and pancytopenia, though she may require a bone leonarda ow biopsy in the near future. I will defer to Oncology for that issue. 3. Coagulopathy, this is likely related, and further workup as described above. /[id number]/MODL
[2016-11-23] MEDS ORDERED: GOLYTELY 4000 ML BTL PO ONE (13:57)
[2016-11-23] MEDS ORDERED: ALBUMIN 25% 100 ML IV ONE (14:00)
--- NOTE | 2016-11-23 14:01 | SOAPPROG ---
SOAP Progress Note Assessment/Plan: Assessment: Anemia Pt with recurrent anemia but no e/o active GI bleeding Heme positive stool with h/o colon cancer could be contributing to anemia. Will eventually need EGD colon and pt agrees to try prep today to do w/u this admission. Pt high risk for scope due to low PLT but better today post transfusion. Plan: Prep today for EGD colon in AM as long as patient can tolerate prep today. 11/23/16 13:57 Subjective: CC weakness No BRBPR no melena Objective: Vital Signs Temp Pulse Resp BP Pulse Ox 36.4 C 63 12 112/52 L 98 11/23/16 12:35 11/23/16 13:00 11/23/16 13:00 11/23/16 13:00 11/23/16 13:00 Laboratory Results 11/23/16 13:00 11/23/16 04:00 11/22/16 11/23/16 11/24/16 05:59 05:59 05:59 Intake Total 6020 Output Total 250 Balance 5770 PT 21.8 SEC (12.0-15.0) H 11/23/16 04:00 INR 1.89 (0.83-1.16) H 11/23/16 04:00 Physical Exam - Physical Exam General Appearance: alert, no apparent distress Respiratory: lungs clear Cardiac/Chest: regular rate, rhythm Abdomen: non-tender, soft ICD10 Worksheet Patient Problems: Problems Problem Status Onset Anemia Acute GI bleed Acute Hypotension Acute
--- NOTE | 2016-11-23 14:32 | HOSPPROG ---
Hospitalist Progress Note Assessment/Plan: Assessment: 71-year-old female presenting with acute hypotension in the setting of pancytopenia, acute kidney injury Plan: 1. Hypotension. Acute, unclear etiology, persistent today -lact wnl -cortisol abnormally normal, raising suspicion of adrenal mets, but CT abd contraindicated given ARIAN, hold steroids given risk of marion -levophed started, upgrade to ICU -cont albumin instead of IVF, given that she is 6L net positive -echo wnl -no e/o active blood loss 2. Pancytopenia. 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 Barrios, awaiting SPEP/UPEP results -transfused another 2u today, repeat CBC at 8 p.m. -d/w Dr. Garrett, patient declined colon prep today, plan for EGD/Colon tomorrow if she agrees to prep, cont IV PPI and clear diet 3. Acute kidney injury. 2/2 hypovolemia, as well as possible underlying MM -UA, uProt ordered -cont to maintain MAP > 65 4. Suspected severe protein calorie malnutrition. Evidenced by proximal muscle wasting, total protein of 3.8, albumin of 1.8 -get dietary consultation -continue dietary supplements with meals -most likely secondary to underlying malignant condition Diet. Clears Prophylaxis. High risk patient, SCDs, pharm contraindicated in the setting of possible bleeding Code. Full per patient, sinus MPOA Disposition. Anticipated discharge is uncertain this time, remains critically ill with high risk of morbidity and mortality. 50 minutes of critical care time spent with this patient, at bedside, as well as coordinating with pulmonary/critical Care, Gastroenterology, Hematology, addressing the issues as outlined above. Subjective: Patient reports that she has more energy today than on day prior, has not had any bowel movements today Objective: Vital Signs Temp Pulse Resp BP Pulse Ox 36.4 C 76 18 116/78 96 11/23/16 12:35 11/23/16 14:00 11/23/16 14:00 11/23/16 14:00 11/23/16 14:00 Laboratory Results 11/23/16 13:00 11/23/16 04:00 11/22/16 11/23/16 11/24/16 05:59 05:59 05:59 Intake Total 6020 Output Total 250 Balance 5770 PT 21.8 SEC (12.0-15.0) H 11/23/16 04:00 INR 1.89 (0.83-1.16) H 11/23/16 04:00 - Physical Exam Constitutional: not in pain, chronically ill appearing Cardiovascular: regular rate and rhythym, no murmur, rub, or gallop, edema ( Left greater than right lower extremity) Respiratory: no respiratory distress, no rales or rhonchi, clear to auscultation Gastrointestinal: normoactive bowel sounds, soft, non-tender abdomen, no palpable masses Skin: other (Scattered, dense ecchymoses bilateral dorsal surfaces of her upper extremities, anterior surfaces of her lower extremities) Neurologic: AAOx3, sensation intact bilaterally, No weakness (Motor strength 5/ 5 bilateral upper and lower extremity) Psychiatric: interacting appropriately, not anxious, not encephalopathic, thought process linear ICD10 Worksheet Patient Problems: Problems Problem Status Onset Anemia Acute Hypotension Acute GI bleed Acute
[2016-11-23 15:05] LABS: COLOR YELLOW; LEUKOCYTE ESTERASE,URINE TRACE (NEGATIVE); NITRITE,URINE NEGATIVE (NEGATIVE)
[2016-11-23 15:21] LABS: BACTERIA 4+ /hpf (NONE SEEN); MUCUS 1+ /lpf (NONE-1+); WBC,URINE 15-25 /hpf (0-3)
[2016-11-23 18:32] LABS: IG KAPPA FREE LIGHT CHAIN 2.56 mg/dL; IG LAMBDA FREE LIGHT CHAIN 2.22 mg/dL; KAPPA/LAMBDA RATIO 1.15
[2016-11-23] MEDS: NS 1,000 ML IV SCH (19:00)
[2016-11-23] MEDS: QUEtiapine FUMARATE 25 MG TAB PO SCH (22:17)
[2016-11-23] MEDS: ALPRAZolam 0.5 MG TAB PO SCH (22:17)
[2016-11-23 22:37] LABS: HEMATOCRIT 30.3 % (38.0-47.0); HEMOGLOBIN 10.5 g/dL (12.6-16.3); MEAN CELL HEMOGLOBIN 31.5 pg (27.9-34.1); MEAN CELL HEMOGLOBIN CONCENTR. 34.7 g/dL (32.4-36.7); RED BLOOD CELL COUNT 3.33 10^6/uL (4.18-5.33); RED CELL DISTRIBUTION WIDTH 17.4 % (11.5-15.2)
[2016-11-24 05:40] LABS: % IMMATURE GRANULYOCYTES 2.4 % (0.0-1.1); ABSOLUTE IMMATURE GRANULOCYTES 0.07 10^3/uL (0.00-0.10); ADD DIFF? NO; ADD MORPH? NO; ADD SCAN? NO; ATYPICAL LYMPHOCYTE FLAG 10 (0-99); FRAGMENT RBC FLAG 20 (0-99); HEMATOCRIT 30.2 % (38.0-47.0); HEMOGLOBIN 10.3 g/dL (12.6-16.3); LEFT SHIFT FLG 10 (0-99); LIPEMIA HEMOLYSIS FLAG 90 (0-99); MEAN CELL HEMOGLOBIN 31.7 pg (27.9-34.1); MEAN CELL HEMOGLOBIN CONCENTR. 34.1 g/dL (32.4-36.7); MEAN CELL VOLUME 92.9 fL (81.5-99.8); MEAN PLATELET VOLUME 9.9 fL (8.7-11.7); PLATELET CLUMPS FLAG 0 (0-99); PLATELET COUNT 73 10^3/uL (150-400); RED BLOOD CELL COUNT 3.25 10^6/uL (4.18-5.33); RED CELL DISTRIBUTION WIDTH 17.8 % (11.5-15.2)
[2016-11-24 05:44] LABS: PLATELET COUNT 73 10^3/uL (150-400)
[2016-11-24 05:47] LABS: PROTIME(PATIENT) 15.2 SEC (12.0-15.0)
[2016-11-24 05:48] LABS: ALANINE AMINOTRANSFERASE 27 IU/L (9-52); ALBUMIN 2.2 g/dL (3.5-5.0); ALKALINE PHOSPHATASE 49 IU/L (38-126); ANION GAP 9 mEq/L (8-16); APTT 31.6 SEC (23.0-38.0); ASPARTATE AMINOTRANSFERASE 18 IU/L (14-46); BILIRUBIN,TOTAL 1.3 mg/dL (0.1-1.4); CALCIUM 6.8 mg/dL (8.5-10.4); CARBON DIOXIDE 16 mEq/l (22-31); CHLORIDE 114 mEq/L (97-110); CREATININE 0.7 mg/dL (0.6-1.0); GLOMERULAR FILTRATION RATE > 60; GLUCOSE 88 mg/dL (70-100); POTASSIUM 3.3 mEq/L (3.5-5.2); SODIUM 139 mEq/L (134-144); TOTAL PROTEIN 4.3 g/dL (6.3-8.2)
[2016-11-24 05:49] LABS: FIBRINOGEN 335 mg/dL (214-456)
[2016-11-24] MEDS: LEVOTHYROXINE 75 MCG TAB PO SCH (05:52)
[2016-11-24] MEDS: NOREPINEPHRINE/NS 500 ML IV SCH (08:44)
[2016-11-24] MEDS: D5W 1/2 NS W/ 20 KCl/L 1,000 ML IV SCH ×2 (08:45→20:28)
[2016-11-24] MEDS: CHOLECALCIFEROL VIT D3 1,000 UNITS TAB PO SCH (10:39)
[2016-11-24] MEDS: OMEGA-3 FATTY ACIDS 1,000 MG CAP PO SCH (10:39)
[2016-11-24] MEDS: lamoTRIgine 100 MG TAB PO SCH (10:39)
[2016-11-24] MEDS: PANTOPRAZOLE SODIUM 40 MG in NS 100 ML IV SCH ×2 (10:45→20:28)
[2016-11-24] MEDS ORDERED: MIDAZOLAM 2 MG/2 ML VIAL ONE (10:48)
[2016-11-24] MEDS ORDERED: fentaNYL 100 MCG/2 ML INJ ONE (10:49)
--- NOTE | 2016-11-24 11:32 | SUROPNOTE ---
SUBHASH Operative Report - Surgery EGD and colon full notes dictated EGD: Grade C esophagitis diffuse severe gastritis atypical appearance biopsies Few DU also atypical biopsied Colon jennings tic s/p right lindsey no polyps seen Plan PPI BID can change to PO once taking PO well OK to advance diet
--- NOTE | 2016-11-24 11:39 | SOAPPROG ---
SOAP Progress Note Assessment/Plan: Assessment: 1. severe anemia, normochromic. Hgb and plts generally stable today 2. pancytopenia, relatively recent onset 3. history colon cancer 4. past history of alcohol abuse, denies recent 5. heme positive stools, endoscopy today shows abnormal stomach, duodenum, path pending, colon ok 6. protein calorie malnutrition 7. Ecchymosis 8. elevated inr, better post vitamin K Plan:Will schedule bone marrow for tomorrow, review path when available, depending on outcome may need systemic imaging. Normal spep and serum free light chain makes myeloma quite unlikely. Lymphoma a possibility. 11/23/16 12:20 11/24/16 11:31 Subjective: sleeping post endoscopy Objective: Vital Signs Temp Pulse Resp BP Pulse Ox 97.9 F 61 20 107/45 L 91 L 11/24/16 07:41 11/24/16 11:00 11/24/16 11:00 11/24/16 11:00 11/24/16 11:00 Laboratory Results 11/24/16 05:10 11/24/16 05:10 11/23/16 11/24/16 11/25/16 05:59 05:59 05:59 Intake Total 6020 6446 Output Total 250 1150 Balance 5770 5296 PT 15.2 SEC (12.0-15.0) H 11/24/16 05:10 INR 1.20 (0.83-1.16) H 11/24/16 05:10 ICD10 Worksheet Patient Problems: Problems Problem Status Onset Anemia Acute GI bleed Acute Hypotension Acute
--- NOTE | 2016-11-24 11:56 | GPN ---
[f rep st] PROCEDURE NOTE DATE OF PROCEDURE: 11/24/2016 PROCEDURE PERFORMED: Upper endoscopy with biopsy. INSTRUMENT USED: Olympus video gastroscope. MEDICINES GIVEN: Versed 4 mg, fentanyl 100 mcg. INDICATIONS: Patient is a 71-year-old with history of colon cancer, presents with severe anemia but also with overall bone marrow suppression, but also heme positive stools. Referred for upper and lower endoscopy. Prior to the procedure, exam was performed including auscultation of heart lungs within normal limits. Patient's mental status appropriate. Procedure was explained including the risks of bleeding, perforation, effects of conscious sedation. She gave her informed consent. FINDINGS: Patient was placed in left lower decubitus position. Medicines given by slow IV titration to achieve adequate conscious sedation. Instrument inserted through bite block into esophagus. Esophagus had grade C erosive esophagitis distally. Scope was then passed in the stomach which had a diffuse and severe gastropathy noted throughout most of the stomach, with somewhat of an atypical appearance in the antrum. The mucosa was granular but also raised. There were some erosions and some appearance that could be consistent with AVMs or potentially GAVE. Retroflexion was performed. She also had patchy spots of erythema with granular mucosa, however no active bleeding, no old blood , no stigmata of recent bleeding. Biopsies were taken of the lesions in the antrum with minimum blood loss. Scope then passed in the duodenal which was markedly inflamed with at least 2 duodenal ulcers, somewhat heaped up edges but bland base, no stigmata of recent bleeding. The edges were biopsied. Unfortunately, the processor was not able to take photos during this procedure. Scope was then terminated. Time of procedure was approximately 10 minutes. ASSESSMENT: 1. Grade C erosive esophagitis. 2. Severe gastritis with somewhat atypical appearance, possibly vascular lesions although overall probably more inflammatory; this was biopsied. 3. Duodenal ulcers with also slightly atypical appearance with more heaped up edges, but bland based and no stigmata of recent bleeding; these were biopsied. PLAN: 1. Will await biopsies of the stomach and the duodenal ulcers to assure no infiltrative process. 2. PPI twice daily. She is getting PPI IV now but can switch to PPI p.o. b.i.d. once taking p.o. well. 3. Okay to advance diet. This likely explains her heme-positive stools and likely contributing to her anemia, but will proceed with colonoscopy. Thanks for this consult. /[id number]/MODL MTDD
--- NOTE | 2016-11-24 12:05 | GPN ---
[f rep st] PROCEDURE NOTE DATE OF PROCEDURE: 11/24/2016 PROCEDURE PERFORMED: Colonoscopy. INSTRUMENT USED: Olympus video colonoscope. MEDICINES GIVEN: Total for both procedures, Versed 4 mg and fentanyl 100 mcg. TIME OF SEDATION: For both procedures was a total of 25 minutes. Prior to procedure, exam was performed including auscultation of heart and lungs within normal limit s. Patient's mental status appropriate. The procedure was explained including risks of bleeding, p erforation, effects of conscious sedation. She gave her informed consent. FINDINGS: Patient was placed in left lower decubitus position. Perianal exam performed was normal. The instrument was inserted into the rectum and advanced by direct visualization into the area of the anastomosis, which was easily reached and identified by the presence of the surgical anastomosis in the right side. The patient did not have a cecum. The anastomosis appeared normal. Subsequent ly the scope was withdrawn with inspection of colonic mucosa. The prep was somewhat poor throughout which limited exam and would be unable to assess fully for AVMs or small polyps, but no large polyp s were seen. No masses. There was jennings diverticulosis noted throughout; however, there was no old b lood or active bleeding. Retroflexion was performed and revealed hemorrhoids at the dentate line wi th little red spots and no active bleeding. The scope was removed from the patient. She tolerated the procedure well. Time spent was approximately 15 minutes. ASSESSMENT: 1. Jennings diverticulosis. 2. Status post right hemicolectomy with no recurrence of cancer seen and no polyps, although somewh at poor prep. PLAN: Please see upper endoscopy. We will treat for her underlying gastritis and ulcers. Can adva nce diet. Patient may benefit from a repeat colonoscopy in 1 year as this exam had an inadequate pr ep for full polyp screening. Thank you for this consult. /[id number]/MODL
--- NOTE | 2016-11-24 14:06 | HOSPPROG ---
Hospitalist Progress Note Assessment/Plan: Assessment: 71-year-old female presenting with acute shock in the setting of pancytopenia, acute kidney injury, upper gastrointestinal hemorrhage Plan: 1. Shock. Acute, likely hypovolemic in setting of hypoalbuminemia and GIB -cont on levophed, wean as gaby -adjusted IVF, did not have a profound response to albumin 2. Pancytopenia. Unclear etiology, suspect malignancy, possibly myelodysplasic -d/w Dr. Barrios, get CT c/a/p w/ IV contrast, recs bone marrow bx tomorrow -no transfusion today 3. Acute kidney injury. 2/2 hypovolemia, improved w/ IVF -cont to maintain MAP > 65 4. Moderate protein calorie malnutrition. Evidenced by total protein of 3.8, albumin of 1.8 -appreciate dietary consult -cont supplements 5. Upper Gastrointestinal hemorrhage. Evidenced by blood loss prior to presentation, likely slow upper GIB from esophagitis and stomach inflammation -d/w Dr. Garrett, EGD w/ friable surface possibly 2/2 infiltrative process, bx taken -cont PO PPI 6. Acute blood loss anemia. POA, likely occurring 2/2 GIB, s/p PRBCs Diet. Clears Prophylaxis. High risk patient, SCDs, pharm contraindicated Code. Full per patient, son is MPOA Disposition. Anticipated discharge is uncertain this time, highly complex patient w/ high risk of morbidity/mortality for issues outlined above. Subjective: Patient reports she is feeling well, she is amenable to work with physical therapy today Objective: Vital Signs Temp Pulse Resp BP Pulse Ox 36.6 C 60 14 114/50 L 100 11/24/16 07:41 11/24/16 13:00 11/24/16 13:00 11/24/16 13:00 11/24/16 13:00 Laboratory Results 11/24/16 05:10 11/24/16 05:10 11/23/16 11/24/16 11/25/16 05:59 05:59 05:59 Intake Total 6020 6446 Output Total 250 1150 Balance 5770 5296 PT 15.2 SEC (12.0-15.0) H 11/24/16 05:10 INR 1.20 (0.83-1.16) H 11/24/16 05:10 - Physical Exam Constitutional: no apparent distress, not in pain, chronically ill appearing, No uncomfortable Cardiovascular: regular rate and rhythym, no murmur, rub, or gallop, edema ( Left greater than right, 1+) Respiratory: no respiratory distress, no rales or rhonchi, clear to auscultation Gastrointestinal: normoactive bowel sounds, soft, non-tender abdomen, no palpable masses Skin: other (Dense ecchymoses scattered bilaterally, surfaces of the wrists and ankles, no open wounds) Neurologic: AAOx3, sensation intact bilaterally, No weakness (Motor strength 5/ 5 bilateral lower extremity) Psychiatric: interacting appropriately, not anxious, not encephalopathic, thought process linear ICD10 Worksheet Patient Problems: Problems Problem Status Onset Anemia Acute Hypotension Acute GI bleed Acute
[2016-11-24] MEDS ORDERED: IOPAMIDOL (ISOVUE-300) 100 ML BTL IV ONE ×2 (15:46→16:38)
--- NOTE | 2016-11-24 16:44 | PDINTPN ---
University Demonstrator Progress Note Assessment/Plan: Assessment/plan: 74 F with pancytopenia of uncertain etiology, admitted with weakness and mechanical fall. She had issues with slightly low platelets and WBC previously, but her H/H were normal about a month ago. She has also been hypoalbuminemic and hypotensive presumably related to volume. * Hypotension- probably volume. No evidence of sepsis, ACS, or adrenal insufficiency. Once her colonoscopy is complete I would check a NICOMN and continue woith fluid challenges as indicated. * Pancytopenia- discussed with Drs. Panchal and Sophie- CT abdomen/pelvis pending , though may need BM Bx * Objective: Vital Signs Temp Pulse Resp BP Pulse Ox 36.7 C 53 L 20 106/56 L 100 11/24/16 16:00 11/24/16 16:00 11/24/16 16:00 11/24/16 16:00 11/24/16 16:00 Laboratory Results 11/24/16 05:10 11/24/16 05:10 11/23/16 11/24/16 11/25/16 05:59 05:59 05:59 Intake Total 6020 6446 Output Total 250 1150 600 Balance 5770 5296 -600 PT 15.2 SEC (12.0-15.0) H 11/24/16 05:10 INR 1.20 (0.83-1.16) H 11/24/16 05:10 Physical Exam - Physical Exam General Appearance: WD/WN, alert, obese EENT: PERRL/EOMI Neck: supple Respiratory: lungs clear, normal breath sounds, No respiratory distress Cardiac/Chest: normal peripheral pulses, regular rate, rhythm, No edema Abdomen: normal bowel sounds, non-tender, soft, No distended Skin: normal color, warm/dry Lymphatic: no adenopathy Extremities: normal range of motion, No pedal edema Neuro/Psych: alert, normal mood/affect, oriented x 3 ICD10 Worksheet Patient Problems: Problems Problem Status Onset Anemia Acute GI bleed Acute Hypotension Acute
[2016-11-24] MEDS: QUEtiapine FUMARATE 25 MG TAB PO SCH (20:28)
[2016-11-24] MEDS: ALPRAZolam 0.5 MG TAB PO SCH (20:28)
[2016-11-25 04:40] LABS: % IMMATURE GRANULYOCYTES 2.3 % (0.0-1.1); ABSOLUTE IMMATURE GRANULOCYTES 0.06 10^3/uL (0.00-0.10); ADD DIFF? NO; ADD MORPH? NO; ADD SCAN? NO; ATYPICAL LYMPHOCYTE FLAG 0 (0-99); FRAGMENT RBC FLAG 0 (0-99); HEMATOCRIT 30.6 % (38.0-47.0); HEMOGLOBIN 10.4 g/dL (12.6-16.3); LEFT SHIFT FLG 0 (0-99); LIPEMIA HEMOLYSIS FLAG 90 (0-99); MEAN CELL HEMOGLOBIN 31.5 pg (27.9-34.1); MEAN CELL VOLUME 92.7 fL (81.5-99.8); MEAN PLATELET VOLUME 9.4 fL (8.7-11.7); PLATELET CLUMPS FLAG 0 (0-99); PLATELET COUNT 61 10^3/uL (150-400); RED CELL DISTRIBUTION WIDTH 17.7 % (11.5-15.2)
[2016-11-25 04:54] LABS: ALANINE AMINOTRANSFERASE 26 IU/L (9-52); ALKALINE PHOSPHATASE 49 IU/L (38-126); ANION GAP 5 mEq/L (8-16); ASPARTATE AMINOTRANSFERASE 16 IU/L (14-46); BILIRUBIN,TOTAL 1.3 mg/dL (0.1-1.4); CALCIUM 6.9 mg/dL (8.5-10.4); CARBON DIOXIDE 20 mEq/l (22-31); CHLORIDE 110 mEq/L (97-110); CREATININE 0.6 mg/dL (0.6-1.0); GLOMERULAR FILTRATION RATE > 60; GLUCOSE 145 mg/dL (70-100); POTASSIUM 3.2 mEq/L (3.5-5.2); SODIUM 135 mEq/L (134-144)
[2016-11-25] MEDS: LEVOTHYROXINE 75 MCG TAB PO SCH (06:09)
--- NOTE | 2016-11-25 09:48 | SOAPPROG ---
SOAP Progress Note Assessment/Plan: Assessment: Anemia with heme + stool. EGD with significant gastric inflammation atypical appearance could be from severe inflammation but biopsies Grade c esophagitis Duodenal ulcers also biopsied Plan: OK jose advance diet after bone marow biopsy today PPI PO BID Await biopsies Going off service today and will sign off for now. If biopsies are not diagnostic could consider repeat EGD for rebiopsy next week after treatment of overlying inflammation. 11/25/16 09:42 Subjective: CC anemia Pt with no brbpr or melena Objective: Vital Signs Temp Pulse Resp BP Pulse Ox 36.6 C 62 18 119/48 L 97 11/25/16 04:00 11/25/16 07:00 11/25/16 07:00 11/25/16 07:00 11/25/16 07:00 Laboratory Results 11/25/16 04:30 11/25/16 04:30 11/24/16 11/25/16 11/26/16 05:59 05:59 05:59 Intake Total 6446 5262 Output Total 1150 1000 1 Balance 5296 4262 -1 PT 15.2 SEC (12.0-15.0) H 11/24/16 05:10 INR 1.20 (0.83-1.16) H 11/24/16 05:10 Physical Exam - Physical Exam General Appearance: alert, no apparent distress Respiratory: lungs clear, normal breath sounds Cardiac/Chest: regular rate, rhythm Abdomen: non-tender, soft ICD10 Worksheet Patient Problems: Problems Problem Status Onset Anemia Acute GI bleed Acute Hypotension Acute
[2016-11-25] MEDS: PANTOPRAZOLE SODIUM 40 MG in NS 100 ML IV SCH ×2 (10:03→21:45)
[2016-11-25] MEDS: ALBUMIN 25% 100 ML IV SCH ×4 (10:03→23:40)
[2016-11-25] MEDS: POTASSIUM Cl (KCl) 100 ML IV SCH ×2 (10:04→10:05)
[2016-11-25] MEDS: CHOLECALCIFEROL VIT D3 1,000 UNITS TAB PO SCH (10:07)
[2016-11-25] MEDS: OMEGA-3 FATTY ACIDS 1,000 MG CAP PO SCH (10:08)
[2016-11-25] MEDS: lamoTRIgine 100 MG TAB PO SCH (10:08)
[2016-11-25] MEDS: NOREPINEPHRINE/NS 500 ML IV SCH (10:58)
[2016-11-25] MEDS ORDERED: MIDAZOLAM 2 MG/2 ML VIAL ONE (11:43)
[2016-11-25] MEDS ORDERED: fentaNYL 100 MCG/2 ML INJ ONE (11:43)
[2016-11-25] MEDS ORDERED: BUPIVACAINE 0.5% 30 ML SDV ONE (12:10)
--- NOTE | 2016-11-25 12:17 | POSTOPPROG ---
Post Op Note Date of Operation: 11/25/16 Surgeon: Aida Gee Anesthesia: IV Sedation Pre-op Diagnosis: GI Bleeding Post-op Diagnosis: same Indication: possible lymphoma Procedure: BM bx and core bx Inf/Abcess present in the surg proc area at time of surgery?: No Depth: Superfical (Skin SQ) EBL: Minimal Complications: None Specimen(s): BM and core from RT iliac wing.
--- NOTE | 2016-11-25 14:28 | HOSPPROG ---
Hospitalist Progress Note Assessment/Plan: INTERVAL SUMMARY & DAILY PROGRESS NOTE DATE OF ADMISSION: 11/22/2016 INTERVAL DIAGNOSES 1. Acute shock 2. Pancytopenia 3. Acute kidney injury 4. Moderate protein calorie malnutrition 5. Upper gastrointestinal hemorrhage 6. Acute blood loss anemia 7. Acute hypokalemia 8. Pleural effusion 9. Atelectasis CONSULTATIONS Gastroenterology, Hematology Oncology, Pulmonary Critical Care, Interventional Radiology PROCEDURES / IMAGING Bone marrow biopsy, upper endoscopy, colonoscopy, central line placement CHIEF COMPLAINT Acute weakness and fall SUBJECTIVE Patient reports she is feeling well, her energy is improving, she is urinating frequently HOSPITAL COURSE BY PROBLEM The patient presented with weakness secondary to acutely worsening anemia secondary to suspected upper gastrointestinal hemorrhage from esophagitis and gastritis resulting in significant anemia. The cause of her esophagitis and gastritis is suspected to be infiltrative and potentially secondary to a myeloproliferative disorder, given her pancytopenia and concomitant ground- glass opacities on her chest CT as well as malnutrition resulting in edema and anasarca. Her systolic blood pressure was notably in the 70s on presentation and is believe that is most likely secondary to a combination of hypovolemia as well as poor oncotic pressure. Attempts were made to volume resuscitate her with normal saline and albumin but the patient's systolic blood pressure remained in the 70s. Consequently, Levophed was initiated and the patient has been requiring Levophed since. We are attempting to titrate her off of the Levophed by liberalizing her MAP goal as well as placing her on scheduled albumin. She currently has pathology results pending from her bone marrow biopsy as well as upper GI biopsy. We suspect that once the pathology results are available, a firm malignancy diagnosis will be ascertained. Assessment: 71-year-old female presenting with acute shock in the setting of pancytopenia, acute kidney injury, upper gastrointestinal hemorrhage Plan: 1. Shock. Acute, likely hypovolemic in setting of hypoalbuminemia and GIB, SBP 70s requiring levophed -d/w Dr. Chapin, lower the MAP goal to [address] on scheduled albumin, stop additional IVF (net pos 14L LOS), and get NICOM 2. Pancytopenia. Suspect malignancy, possibly myeloproliferative disorder ( likely lymphoma) -path results from BmBx and EGD bx pending -no transfusion today 3. Acute kidney injury. 2/2 hypovolemia, improved w/ IVF -cont to maintain MAP > 60 4. Moderate protein calorie malnutrition. Evidenced by total protein of 3.8, albumin of 1.8 -appreciate dietary consult -cont supplements 5. Upper Gastrointestinal hemorrhage. Evidenced by blood loss prior to presentation, likely slow upper GIB from esophagitis and stomach inflammation -d/w Dr. Garrett, EGD w/ friable surface possibly 2/2 infiltrative process, bx taken -cont PO PPI -GI to sign off, reconsult if needed 6. Acute blood loss anemia. POA, likely occurring 2/2 GIB, s/p PRBCs 7. Pleural effusion. Present on chest CT, most likely secondary to poor oncotic pressure and volume received for shock, hold on diuresis given current pressor requirements, may require diuresis once she has been weaned off of pressors or if oxygen requirements worsen 8. Atelectasis. Present on chest CT, most likely secondary to compression from effusions, incentive spirometer Diet. Regular Prophylaxis. High risk patient, SCDs, pharm contraindicated Code. Full per patient, son is MPOA Disposition. Anticipated discharge is uncertain this time, highly complex patient w/ high risk of morbidity/mortality for issues outlined above. Subjective: Counseled patient regarding her preliminary diagnosis of underlying myeloproliferative malignancy, patient is taking the news well, she would like to uncovered the cause of her presentation and symptoms, she is urinating frequently, she has not been particularly ambulatory during this hospitalization Objective: Vital Signs Temp Pulse Resp BP Pulse Ox 36.6 C 70 14 106/60 98 11/25/16 04:00 11/25/16 14:00 11/25/16 14:00 11/25/16 14:00 11/25/16 14:00 Laboratory Results 11/25/16 04:30 11/25/16 04:30 11/24/16 11/25/16 11/26/16 05:59 05:59 05:59 Intake Total 6446 5262 Output Total 1150 1000 1 Balance 5296 4262 -1 PT 15.2 SEC (12.0-15.0) H 11/24/16 05:10 INR 1.20 (0.83-1.16) H 11/24/16 05:10 - Time Spent With Patient Time Spent with Patient: greater than 35 minutes Time Spent with Patient: Greater than 35 minutes spent on this patients care, greater than 50% of time spent counseling, educating, and coordinating care regarding the above mentioned plan. - Physical Exam Constitutional: no apparent distress, not in pain, chronically ill appearing, cachectic, No uncomfortable Ears, Nose, Mouth, Throat: moist mucous membranes, hearing normal, ears appear normal, no oral mucosal ulcers Cardiovascular: regular rate and rhythym, no murmur, rub, or gallop, edema ( Left greater than right lower extremity), No irregularly irregular, No tachycardia Respiratory: reduced air movement (Bilateral bases), inspiratory crackles ( Bilateral bases), No expiratory wheeze, No bronchial breath sounds Gastrointestinal: normoactive bowel sounds, soft, non-tender abdomen, no palpable masses Skin: other (Dense ecchymoses over the dorsal surfaces of her bilateral upper extremities, anterior surfaces of her lower extremity) Neurologic: AAOx3, No weakness (Motor strength 5/5 bilateral lower extremity) Psychiatric: interacting appropriately, not anxious, not encephalopathic, thought process linear ICD10 Worksheet Patient Problems: Problems Problem Status Onset Anemia Acute Hypotension Acute GI bleed Acute
--- NOTE | 2016-11-25 15:40 | PDINTPN ---
Energy Control Officer Progress Note Assessment/Plan: Assessment/plan: 74 F with pancytopenia of uncertain etiology, admitted with weakness and mechanical fall. She had issues with slightly low platelets and WBC previously, but her H/H were normal about a month ago. She has also been hypoalbuminemic and hypotensive presumably related to volume. * Hypotension- probably volume. Continue pressors for now. I agree with scheduled albumin and consider titrating pressors to SBP>90 as we may not achieve a MAP>65. There is no evidence of end organ damage por hypoperfusion at this point. * Pancytopenia- discussed with Drs. Panchal and Sophie- * 11/25/16 15:17 Objective: Vital Signs Temp Pulse Resp BP Pulse Ox 36.6 C 93 17 89/51 L 98 11/25/16 04:00 11/25/16 14:34 11/25/16 14:34 11/25/16 14:34 11/25/16 14:34 Laboratory Results 11/25/16 04:30 11/25/16 04:30 11/24/16 11/25/16 11/26/16 05:59 05:59 05:59 Intake Total 6446 5262 Output Total 1150 1000 1 Balance 5296 4262 -1 PT 15.2 SEC (12.0-15.0) H 11/24/16 05:10 INR 1.20 (0.83-1.16) H 11/24/16 05:10 ICD10 Worksheet Patient Problems: Problems Problem Status Onset Anemia Acute GI bleed Acute Hypotension Acute
--- NOTE | 2016-11-25 16:30 | GPROG ---
[f rep st] PROGRESS NOTE The patient says she feels well. She is a bit sleepy after her bone marrow biopsy. She remains in the ICU on a tapering dose of Levophed. She is also receiving albumin. PHYSICAL EXAM: VITAL SIGNS: Today blood pressure is 89/51, O2 sat is 98% on room air. CHEST: Gilma ws somewhat decreased breath sounds and a few inspiratory crackles. CARDIAC: Unremarkable. ABDOME N: Shows some anasarca but no organomegaly. BREASTS: Exam of her right breast is unremarkable. LABORATORY: Current white count of 2.65 with 67% neutrophils. Hemoglobin is stable at 10.4, hemato crit 30.6, platelets are 61,000, retic count from yesterday is 4.1. Upper GI endoscopy by Dr. Yaniv pino showed grade C esophagitis with diffuse severe gastritis with an atypical appearance, either va scular or inflammatory lesion. There were also duodenal ulcers with a slightly atypical appearance of more heaped up edges. Colonoscopy was generally unremarkable with changes consistent with a righ t hemicolectomy. CT scan of the chest showed pleural effusions, moderate with bibasilar compressive atelectasis. There are nonspecific areas of ground glass attenuation. Mild thoracic compression f ractures were noted with some questionable areas of bone marrow diminished attenuation. There was a questionable right breast nodular asymmetry. Contrast-enhanced CT scan of the abdomen shows cholel ithiasis with pericholecystic fluid and small volume perihepatic ascites with some free fluid in the cul-de-sac, mild anasarca and colonic diverticulosis. There is a possible low-density lesion in th e posterior L2 centrum. IMPRESSION: From a general standpoint, the patient is doing reasonably well. Her blood counts are stable over the last couple days without need for transfusion. The etiology of her pancytopenia rem ains unclear. A bone marrow biopsy was done in Interventional Radiology today and the results are p ending. I think it will also be important to review the results of her biopsies done from her upper GI endoscopy. In terms of the possible breast lesion, there is nothing on exam and I note that shyanne mograms done at [facility] including spot compression views of the right breast in 2015 and August 2016 were unrevealing. I do not think this patient has multiple myeloma as previously discussed. The cause of her significant hypoalbuminemia and anasarca is unclear. The f indings on chest CT scan are nonspecific and I do not think diagnostic of malignancy. I think the p leural effusions could be related to some volume overload and her hypoalbuminemia. Our service will continue to follow with you. /[id number]/MODL
[2016-11-25] MEDS: QUEtiapine FUMARATE 25 MG TAB PO SCH (21:45)
[2016-11-25] MEDS: ALPRAZolam 0.5 MG TAB PO SCH (21:45)
[2016-11-25 22:20] LABS: ANION GAP 4 mEq/L (8-16); CALCIUM 7.6 mg/dL (8.5-10.4); CARBON DIOXIDE 22 mEq/l (22-31); CHLORIDE 107 mEq/L (97-110); CREATININE 0.5 mg/dL (0.6-1.0); GLOMERULAR FILTRATION RATE > 60; GLUCOSE 108 mg/dL (70-100); POTASSIUM 3.7 mEq/L (3.5-5.2); SODIUM 133 mEq/L (134-144)
[2016-11-26 04:11] LABS: % IMMATURE GRANULYOCYTES 0.6 % (0.0-1.1); ABSOLUTE IMMATURE GRANULOCYTES 0.01 10^3/uL (0.00-0.10); ADD DIFF? NO; ADD MORPH? NO; ADD SCAN? NO; ATYPICAL LYMPHOCYTE FLAG 20 (0-99); FRAGMENT RBC FLAG 0 (0-99); HEMATOCRIT 23.2 % (38.0-47.0); HEMOGLOBIN 7.8 g/dL (12.6-16.3); LEFT SHIFT FLG 0 (0-99); LIPEMIA HEMOLYSIS FLAG 80 (0-99); MEAN CELL HEMOGLOBIN 31.2 pg (27.9-34.1); MEAN CELL HEMOGLOBIN CONCENTR. 33.6 g/dL (32.4-36.7); MEAN CELL VOLUME 92.8 fL (81.5-99.8); MEAN PLATELET VOLUME 9.4 fL (8.7-11.7); PLATELET CLUMPS FLAG 0 (0-99); RED CELL DISTRIBUTION WIDTH 17.2 % (11.5-15.2)
[2016-11-26 04:16] LABS: PLATELET COUNT 35 10^3/uL (150-400)
[2016-11-26 04:25] LABS: ANION GAP 4 mEq/L (8-16); CARBON DIOXIDE 23 mEq/l (22-31); CHLORIDE 110 mEq/L (97-110); CREATININE 0.6 mg/dL (0.6-1.0); GLUCOSE 81 mg/dL (70-100); POTASSIUM 3.7 mEq/L (3.5-5.2); SODIUM 137 mEq/L (134-144)
[2016-11-26 04:26] LABS: ALANINE AMINOTRANSFERASE 24 IU/L (9-52); ALBUMIN 2.5 g/dL (3.5-5.0); ALKALINE PHOSPHATASE 33 IU/L (38-126); ASPARTATE AMINOTRANSFERASE 11 IU/L (14-46); BILIRUBIN,TOTAL 2.4 mg/dL (0.1-1.4); CALCIUM 7.6 mg/dL (8.5-10.4); GLOMERULAR FILTRATION RATE > 60; TOTAL PROTEIN 4.2 g/dL (6.3-8.2)
[2016-11-26 04:51] LABS: BILIRUBIN-CONJUGATED 0.4 mg/dL (0.0-0.5)
[2016-11-26] MEDS: LEVOTHYROXINE 75 MCG TAB PO SCH (05:16)
[2016-11-26] MEDS: ALBUMIN 25% 100 ML IV SCH ×4 (05:17→23:43)
[2016-11-26 05:41] LABS: PLATELET ESTIMATE DECREASED (ADEQ)
[2016-11-26] MEDS: PANTOPRAZOLE SODIUM 40 MG TAB PO SCH ×2 (08:53→21:53)
[2016-11-26] MEDS: lamoTRIgine 100 MG TAB PO SCH (08:53)
[2016-11-26] MEDS: OMEGA-3 FATTY ACIDS 1,000 MG CAP PO SCH (08:53)
[2016-11-26] MEDS: CHOLECALCIFEROL VIT D3 1,000 UNITS TAB PO SCH (08:53)
--- NOTE | 2016-11-26 13:22 | HOSPPROG ---
Hospitalist Progress Note Assessment/Plan: 71 yo F h/o remote colon CA, hypothyroidism, here w pancytopenia, gastritis, hypotension hypotension: per nursing, off levophed will check cvp today echo without reason for hypotension not hyperdynamic or febrile to suggest sepsis AM cortisol not low pancytopenia: bm bx pending no rash, arthritis or fh of rheum disease to suggest rheumatologic cause but will check inflammatory markers given absence of diagnosis serolgies if markers high anemia: hct dropped 30-> 23 overnight repeat now transfuse for hg<8 hypoalbuminemia/anasarca: 2/2 as-of-yet- unnamed inflammatory process can dc albumin pulmonary: ground glass opacities on CT- could be edema vs true pulm process consider bronch w BAL if above workup neg fall: multifactorial proph: scd's pharm VTE proph contraindicated given low platelets dispo: high risk, ICU Subjective: case d/w dr swenson. tele: sinus (interp by me) Objective: Vital Signs Temp Pulse Resp BP Pulse Ox 36.6 C 78 18 104/46 L 98 11/26/16 12:00 11/26/16 12:00 11/26/16 12:00 11/26/16 12:00 11/26/16 12:00 Laboratory Results 11/26/16 04:05 11/26/16 04:05 11/25/16 11/26/16 11/27/16 05:59 05:59 05:59 Intake Total 5262 3051 Output Total 1000 401 Balance 4262 2650 PT 15.2 SEC (12.0-15.0) H 11/24/16 05:10 INR 1.20 (0.83-1.16) H 11/24/16 05:10 - Physical Exam Constitutional: no apparent distress, appears nourished Eyes: PERRL, anicteric sclera Ears, Nose, Mouth, Throat: moist mucous membranes, hearing normal Cardiovascular: regular rate and rhythym, no murmur, rub, or gallop Respiratory: no respiratory distress, no rales or rhonchi Gastrointestinal: normoactive bowel sounds, soft, non-tender abdomen Genitourinary: no bladder fullness, No dewey in urethra Skin: warm, normal color Musculoskeletal: full muscle strength, no muscle tenderness Neurologic: AAOx3 Psychiatric: interacting appropriately ICD10 Worksheet Patient Problems: Problems Problem Status Onset Anemia Acute GI bleed Acute Hypotension Acute
[2016-11-26 14:01] LABS: % IMMATURE GRANULYOCYTES 0.7 % (0.0-1.1); ABSOLUTE IMMATURE GRANULOCYTES 0.01 10^3/uL (0.00-0.10); ADD DIFF? NO; ADD MORPH? NO; ADD SCAN? NO; ATYPICAL LYMPHOCYTE FLAG 0 (0-99); FRAGMENT RBC FLAG 0 (0-99); HEMATOCRIT 22.9 % (38.0-47.0); LEFT SHIFT FLG 0 (0-99); LIPEMIA HEMOLYSIS FLAG 90 (0-99); MEAN CELL HEMOGLOBIN 32.4 pg (27.9-34.1); MEAN CELL HEMOGLOBIN CONCENTR. 34.9 g/dL (32.4-36.7); MEAN CELL VOLUME 92.7 fL (81.5-99.8); PLATELET CLUMPS FLAG 10 (0-99); RED BLOOD CELL COUNT 2.47 10^6/uL (4.18-5.33)
[2016-11-26 14:05] LABS: PLATELET COUNT 33 10^3/uL (150-400)
[2016-11-26 14:19] LABS: SEDIMENTATION RATE 21 MM/HR (0-30)
[2016-11-26 14:31] LABS: PLATELET ESTIMATE DECREASED (ADEQ)
--- NOTE | 2016-11-26 14:41 | SOAPPROG ---
SOAP Progress Note Assessment/Plan: Assessment/Plan: 71 yo woman admitted s/p fall w hypotension discovered to have pancytopenia; hx of hypothyroidism and remote hx of colon ca 1. Pancytopenia CBC and hx concerning to me for underlying bone marrow process Bone marrow biopsy pending No evidence of hemolysis - LDH ok, haptoglobin wnl Iron studies do not suggest any significant iron deficiency; retic count inappropriate for degree of anemia CBC has showed intermittent immature granulocytes No enlarged spleen on exam or by imaging *Agree w rheum serologies if ESR/CRP elevated (ELIZABETH, ANCA, etc) *Consider checking for HIV/hepatitis/CMV/EBV DDX includes Hypocellular variant of MDS (given previous low plts), aplastic anemia (acquired or transient), or possibly LGL leukemia Other possibilities include acute leukemia and less likely PNH or HLH given laboratory findings No transfusion requirements today Leukopenia: No e/o infection but if ANC remains low (<500), would add prophylactic abx and antiviral until we discern etiology of pancytopenia If ANC persistently below 250, would add antifungal would not add growth factor at this time Anemia: Trend H/H for bleeding Heme occult+ but this could simply be from low platelets Tx for Hgb <7 Thrombocytopenia: Tx for bleeding or plts <10k 2. Hypotension - on pressors 3. Hypoalbuminemia - given pancytopenia, this suggests a chronic process that may have evolved 11/26/16 14:51 11/26/16 14:58 Subjective: No acute events Remains on pressors Denies new pain DEnies hematuria or obvious blood loss today Objective: Vital Signs Temp Pulse Resp BP Pulse Ox 36.6 C 78 18 104/46 L 98 11/26/16 12:00 11/26/16 12:00 11/26/16 12:00 11/26/16 12:00 11/26/16 12:00 Laboratory Results 11/26/16 13:45 11/26/16 04:05 11/25/16 11/26/16 11/27/16 05:59 05:59 05:59 Intake Total 5262 3051 Output Total 1000 401 Balance 4262 2650 PT 15.2 SEC (12.0-15.0) H 11/24/16 05:10 INR 1.20 (0.83-1.16) H 11/24/16 05:10 Gen - chronically ill appearing HEENT - anicteric CV - tachy Resp - decreased BS at bases Abd - soft, NT, spleen NOT appreciated Ext - 3+ edema Skin - multiple ecchymoses bilateral upper and lower extremities ICD10 Worksheet Patient Problems: Problems Problem Status Onset Anemia Acute GI bleed Acute Hypotension Acute
[2016-11-26] MEDS ORDERED: NS 500 ML IV ONE (16:00)
[2016-11-26 18:08] LABS: COLOR AMBER; LEUKOCYTE ESTERASE,URINE TRACE (NEGATIVE); NITRITE,URINE NEGATIVE (NEGATIVE)
[2016-11-26 18:11] LABS: BACTERIA TRACE /hpf (NONE SEEN); MUCUS TRACE /lpf (NONE-1+); WBC,URINE 25-50 /hpf (0-3)
[2016-11-26] MEDS: QUEtiapine FUMARATE 25 MG TAB PO SCH (21:52)
[2016-11-26] MEDS: ALPRAZolam 0.5 MG TAB PO SCH (21:53)
[2016-11-27] MEDS: ALBUMIN 25% 100 ML IV SCH ×2 (06:00→12:39)
[2016-11-27] MEDS: LEVOTHYROXINE 75 MCG TAB PO SCH (06:00)
[2016-11-27 06:07] LABS: % IMMATURE GRANULYOCYTES 1.4 % (0.0-1.1); ABSOLUTE IMMATURE GRANULOCYTES 0.03 10^3/uL (0.00-0.10); ADD DIFF? NO; ADD MORPH? NO; ADD SCAN? NO; ATYPICAL LYMPHOCYTE FLAG 40 (0-99); FRAGMENT RBC FLAG 0 (0-99); HEMATOCRIT 27.6 % (38.0-47.0); HEMOGLOBIN 9.4 g/dL (12.6-16.3); LEFT SHIFT FLG 0 (0-99); LIPEMIA HEMOLYSIS FLAG 90 (0-99); MEAN CELL HEMOGLOBIN 30.4 pg (27.9-34.1); MEAN CELL HEMOGLOBIN CONCENTR. 34.1 g/dL (32.4-36.7); MEAN CELL VOLUME 89.3 fL (81.5-99.8); MEAN PLATELET VOLUME 9.6 fL (8.7-11.7); PLATELET CLUMPS FLAG 0 (0-99); RED BLOOD CELL COUNT 3.09 10^6/uL (4.18-5.33); RED CELL DISTRIBUTION WIDTH 18.5 % (11.5-15.2)
[2016-11-27 06:08] LABS: PLATELET COUNT 32 10^3/uL (150-400)
[2016-11-27 06:34] LABS: PLATELET ESTIMATE DECREASED (ADEQ)
[2016-11-27 09:52] LABS: ANION GAP 8 mEq/L (8-16); C-REACTIVE PROTEIN 63.2 mg/L (<10.0); CALCIUM 8.2 mg/dL (8.5-10.4); CARBON DIOXIDE 24 mEq/l (22-31); CHLORIDE 109 mEq/L (97-110); CREATININE 0.5 mg/dL (0.6-1.0); GLOMERULAR FILTRATION RATE > 60; GLUCOSE 78 mg/dL (70-100); POTASSIUM 3.5 mEq/L (3.5-5.2); SODIUM 141 mEq/L (134-144)
[2016-11-27] MEDS: CHOLECALCIFEROL VIT D3 1,000 UNITS TAB PO SCH (10:18)
[2016-11-27] MEDS: OMEGA-3 FATTY ACIDS 1,000 MG CAP PO SCH (10:18)
[2016-11-27] MEDS: lamoTRIgine 100 MG TAB PO SCH (10:18)
[2016-11-27] MEDS: PANTOPRAZOLE SODIUM 40 MG TAB PO SCH ×2 (10:18→22:11)
--- NOTE | 2016-11-27 13:59 | SOAPPROG ---
SOAP Progress Note Assessment/Plan: Assessment/Plan: 71 yo woman admitted s/p fall w hypotension discovered to have pancytopenia; hx of hypothyroidism and remote hx of colon ca 1. Pancytopenia CBC and hx concerning for underlying bone marrow process Bone marrow biopsy pending No evidence of hemolysis - LDH ok, haptoglobin wnl Iron studies do not suggest any significant iron deficiency; retic count inappropriate for degree of anemia CBC has showed intermittent immature granulocytes No enlarged spleen on exam or by imaging ESR/CRP not significantly elevated Added HIV/hepatitis studies today DDX includes Hypocellular variant of MDS (given previous low plts), aplastic anemia (acquired or transient), or possibly LGL leukemia Other possibilities but less likely include acute leukemia; labs not c/w PNH or HLH No transfusion requirements today Leukopenia: No e/o infection and ANC improved No need for abx at this time would not add growth factor at this time until we know details of BMBx Anemia: Improved Trend H/H for bleeding Heme occult+ but this could simply be from low platelets Tx for Hgb <7 Thrombocytopenia: Tx for bleeding or plts <10k 2. Hypotension - improved off pressors 3. Hypoalbuminemia - given pancytopenia, this suggests a chronic process that may have evolved 11/27/16 13:59 Subjective: No acute events overnight denies bleeding or new pain Objective: Vital Signs Temp Pulse Resp BP Pulse Ox 36.6 C 84 20 131/71 H 100 11/27/16 12:00 11/27/16 12:00 11/27/16 12:00 11/27/16 12:00 11/27/16 12:00 Laboratory Results 11/27/16 06:00 11/27/16 09:00 11/26/16 11/27/16 11/28/16 05:59 05:59 05:59 Intake Total 3051 1951 Output Total 401 950 Balance 2650 1001 PT 15.2 SEC (12.0-15.0) H 11/24/16 05:10 INR 1.20 (0.83-1.16) H 11/24/16 05:10 Vitals reviewed Gen - NAD, resting HEENT - anicteric CV - RRR Resp - clear anteriorly Abd - soft, NT/ND, BS+ Ext - edema Skin - ecchymoses ICD10 Worksheet Patient Problems: Problems Problem Status Onset Anemia Acute GI bleed Acute Hypotension Acute
--- NOTE | 2016-11-27 14:08 | HOSPPROG ---
Hospitalist Progress Note Assessment/Plan: 71 yo F h/o remote colon CA, hypothyroidism, here w pancytopenia, gastritis, hypotension hypotension: per nursing, off levophed cvp low yesterday, bolused echo without reason for hypotension not hyperdynamic or febrile to suggest sepsis AM cortisol not low now off pressors pancytopenia: bm bx pending no rash, arthritis or fh of rheum disease to suggest rheumatologic cause serolgies if markers high markers elevated but not markedly so await bone marrow- probably needs serologic workup if bm bx neg anemia:received 1 unit packed cells yesterday stable today hypoalbuminemia/anasarca: 2/2 as-of-yet- unnamed inflammatory process can dc albumin pulmonary: ground glass opacities on CT- could be edema vs true pulm process consider bronch w BAL if above workup neg fall: multifactorial proph: [facility] pharm VTE proph contraindicated given low platelets dispo: high risk, ICU Subjective: case d/w messi mackay. tele: no events (interp by me) Objective: Vital Signs Temp Pulse Resp BP Pulse Ox 36.6 C 84 20 131/71 H 100 11/27/16 12:00 11/27/16 12:00 11/27/16 12:00 11/27/16 12:00 11/27/16 12:00 Laboratory Results 11/27/16 06:00 11/27/16 09:00 11/26/16 11/27/16 11/28/16 05:59 05:59 05:59 Intake Total 3051 1951 Output Total 401 950 Balance 2650 1001 PT 15.2 SEC (12.0-15.0) H 11/24/16 05:10 INR 1.20 (0.83-1.16) H 11/24/16 05:10 - Physical Exam Constitutional: no apparent distress, appears nourished Eyes: PERRL, anicteric sclera Ears, Nose, Mouth, Throat: moist mucous membranes, hearing normal Cardiovascular: regular rate and rhythym, no murmur, rub, or gallop Respiratory: no respiratory distress, no rales or rhonchi Gastrointestinal: normoactive bowel sounds, soft, non-tender abdomen Genitourinary: No dewey in urethra Skin: warm, normal color Musculoskeletal: full muscle strength, no muscle tenderness Neurologic: AAOx3 ICD10 Worksheet Patient Problems: Problems Problem Status Onset Anemia Acute GI bleed Acute Hypotension Acute
[2016-11-27 16:23] LABS: HEPATITIS B SURFACE ANTIBODY NEGATIVE (NEGATIVE)
[2016-11-27] MEDS: ALPRAZolam 0.5 MG TAB PO SCH (22:10)
[2016-11-27] MEDS: QUEtiapine FUMARATE 25 MG TAB PO SCH (22:11)
[2016-11-28 04:02] LABS: ABSOLUTE IMMATURE GRANULOCYTES 0.02 10^3/uL (0.00-0.10); ADD DIFF? NO; ADD MORPH? NO; ADD SCAN? NO; ATYPICAL LYMPHOCYTE FLAG 0 (0-99); FRAGMENT RBC FLAG 0 (0-99); HEMOGLOBIN 9.5 g/dL (12.6-16.3); LEFT SHIFT FLG 0 (0-99); LIPEMIA HEMOLYSIS FLAG 90 (0-99); MEAN CELL HEMOGLOBIN CONCENTR. 33.9 g/dL (32.4-36.7); MEAN CELL VOLUME 91.5 fL (81.5-99.8); PLATELET CLUMPS FLAG 10 (0-99); RED BLOOD CELL COUNT 3.06 10^6/uL (4.18-5.33); RED CELL DISTRIBUTION WIDTH 18.5 % (11.5-15.2)
[2016-11-28 04:06] LABS: PLATELET COUNT 33 10^3/uL (150-400)
[2016-11-28 05:13] LABS: PLATELET ESTIMATE DECREASED (ADEQ)
[2016-11-28] MEDS: LEVOTHYROXINE 75 MCG TAB PO SCH (07:11)
[2016-11-28] MEDS: CHOLECALCIFEROL VIT D3 1,000 UNITS TAB PO SCH (09:25)
[2016-11-28] MEDS: OMEGA-3 FATTY ACIDS 1,000 MG CAP PO SCH (09:25)
[2016-11-28] MEDS: lamoTRIgine 100 MG TAB PO SCH (09:25)
[2016-11-28] MEDS: PANTOPRAZOLE SODIUM 40 MG TAB PO SCH ×2 (09:25→22:07)
[2016-11-28] MEDS: ACETAMINOPHEN 325 MG TAB PO PRN (09:25)
[2016-11-28 11:13] LABS: FINAL DIAGNOSIS See Comments; MICROSCOPIC DESCRIPTION See Comments; SPECIAL STUDIES See Comments
--- NOTE | 2016-11-28 12:17 | WOCRNPDOC ---
WOCRN Advanced Assessment Note - Skin Integrity Problem, Advanced Assess Medial Sacrum Dressing Type: Allevyn Life Dressing Description: Clean/Dry, Intact Exudate Amount: None Exudate Characteristic(s): None Integumentary Issue Intervention: Visualized Under Dressing Tiffanie Wound Tissue: Intact Wound Bed Color: Purple Site Odor Comment: [id number] Skin Integrity Problem Comment: Area of soft, raised tissue over sacrum w/ overlying ecchymosis. Tissue is non-fluctuant w/ no erythema, and patient denies pain when palpated. Patient does have a recent history of falls, but was unable to tell me if her most recent fall involved her sacrum/buttocks. Though I do not think this injury is pressure-related, advised instituting pressure- relieving measures as a precaution. Report given to rail car painter/sandblaster Denita. Wound care will follow up on Saturday 12/02 to reassess. Left Sacrum Dressing Type: Allevyn Life Dressing Description: Clean/Dry, Intact Exudate Amount: None Exudate Characteristic(s): None Integumentary Issue Intervention: Visualized Under Dressing Tiffanie Wound Tissue: Intact Wound Bed Color: Purple Site Measurement - Head-to-Toe Length X Width X Depth (cm): [id number] Skin Integrity Problem Comment: Area of ecchymosis on patient's sacrum to the left of midline, w/ no associated swelling. Skin is presently intact, and patient denies any pain. While this injury is over a bony prominence, I do not think it is pressure-related. Patient has extensive bruising throughout her body r/t recent fall, as well as abnormal platelet count. Advised implementing pressure-relieving measures as a precaution. Wound care will follow-up with patient on Saturday 12/02 to monitor this site.
--- NOTE | 2016-11-28 12:51 | PDINTPN ---
[facility] Progress Note Assessment/Plan: Assessment: 74 F with pancytopenia of uncertain etiology, admitted with weakness and mechanical fall. She had issues with slightly low platelets and WBC previously, but her H/H were normal about a month ago. She has also been hypoalbuminemic and hypotensive presumably related to volume. * Hypotension- probably volume. Continue pressors for now. I agree with scheduled albumin and consider titrating pressors to SBP>90 as we may not achieve a MAP>65. There is no evidence of end organ damage por hypoperfusion at this point. * Pancytopenia- discussed with Drs. Panchal and Sophie- Plan: 11/28/16 12:47 Objective: Vital Signs Temp Pulse Resp BP Pulse Ox 36.7 C 75 21 H 108/95 H 100 11/28/16 08:00 11/28/16 10:00 11/28/16 10:00 11/28/16 10:00 11/28/16 10:00 Microbiology 11/22/16 13:00 Blood Culture - Final Blood 11/22/16 12:30 Blood Culture - Final Blood Laboratory Results 11/28/16 03:55 11/27/16 09:00 11/27/16 11/28/16 11/29/16 05:59 05:59 05:59 Intake Total 1951 900 Output Total 950 500 Balance 1001 400 PT 15.2 SEC (12.0-15.0) H 11/24/16 05:10 INR 1.20 (0.83-1.16) H 11/24/16 05:10 ICD10 Worksheet Patient Problems: Problems Problem Status Onset Anemia Acute GI bleed Acute Hypotension Acute
--- NOTE | 2016-11-28 14:10 | HOSPPROG ---
Hospitalist Progress Note Assessment/Plan: 71 yo F h/o remote colon CA, hypothyroidism, here w pancytopenia, gastritis, hypotension hypotension: per nursing, off levophed cvp low yesterday, bolused echo without reason for hypotension not hyperdynamic or febrile to suggest sepsis AM cortisol not low now off pressors pancytopenia: bm bx pending no rash, arthritis or fh of rheum disease to suggest rheumatologic cause markers elevated but not markedly so await bone marrow- probably needs serologic workup if bm bx neg anemia:received 1 unit packed cells stable today hypoalbuminemia/anasarca: 2/2 as-of-yet- unnamed inflammatory process can dc albumin pulmonary: ground glass opacities on CT- could be edema vs true pulm process consider bronch w BAL if above workup neg fall: multifactorial proph: [facility] pharm VTE proph contraindicated given low platelets dispo: high risk, ICU Subjective: case discussed w dr beasley. bone marrow path pending. no events tele (interp by me) Objective: Vital Signs Temp Pulse Resp BP Pulse Ox 36.7 C 68 16 110/64 100 11/28/16 12:50 11/28/16 12:50 11/28/16 12:50 11/28/16 12:50 11/28/16 12:50 Microbiology 11/22/16 13:00 Blood Culture - Final Blood 11/22/16 12:30 Blood Culture - Final Blood Laboratory Results 11/28/16 03:55 11/27/16 09:00 11/27/16 11/28/16 11/29/16 05:59 05:59 05:59 Intake Total 1951 900 Output Total 950 500 Balance 1001 400 PT 15.2 SEC (12.0-15.0) H 11/24/16 05:10 INR 1.20 (0.83-1.16) H 11/24/16 05:10 - Physical Exam Constitutional: no apparent distress, appears nourished Eyes: PERRL, anicteric sclera Ears, Nose, Mouth, Throat: moist mucous membranes, hearing normal Cardiovascular: regular rate and rhythym, no murmur, rub, or gallop Respiratory: no respiratory distress, no rales or rhonchi Gastrointestinal: normoactive bowel sounds, soft, non-tender abdomen Genitourinary: No dewey in urethra Skin: warm, normal color, No rash Musculoskeletal: full muscle strength Neurologic: AAOx3 ICD10 Worksheet Patient Problems: Problems Problem Status Onset Anemia Acute GI bleed Acute Hypotension Acute
--- NOTE | 2016-11-28 14:37 | SOAPPROG ---
SOAP Progress Note Assessment/Plan: Assessment: 71 yo woman admitted s/p fall w hypotension discovered to have pancytopenia; hx of hypothyroidism and remote hx of colon ca 1. Pancytopenia CBC and hx concerning for underlying bone marrow process Bone marrow biopsy pending. Hopefully some results will be available in the next 24 hours. No evidence of hemolysis - LDH ok, haptoglobin wnl Iron studies do not suggest any significant iron deficiency; retic count inappropriate for degree of anemia CBC has showed intermittent immature granulocytes No enlarged spleen on exam or by imaging ESR/CRP not significantly elevated I added an ELIZABETH Screen today because of malar rash DDX includes Hypocellular variant of MDS (given previous low plts), aplastic anemia (acquired or transient), or possibly LGL leukemia Other possibilities but less likely include acute leukemia; labs not c/w PNH or HLH. Lupus possible but also less likely. No transfusion requirements today Leukopenia: No e/o infection and ANC improved No need for abx at this time would not add growth factor at this time until we know details of BMBx Anemia: Improved Trend H/H for bleeding Heme occult+ but this could simply be from low platelets Tx for Hgb <7 Thrombocytopenia: Tx for bleeding or plts <10k 2. Hypotension - improved. 3. Hypoalbuminemia - given pancytopenia, this suggests a chronic process that may have evolved Plan: Check ELIZABETH screen Check BMBx results as they become available Subjective: Says she feel OK today. She doesn't know how long she has had a rash on her face. Objective: Vital Signs Temp Pulse Resp BP Pulse Ox 36.7 C 68 16 110/64 100 11/28/16 12:50 11/28/16 12:50 11/28/16 12:50 11/28/16 12:50 11/28/16 12:50 Microbiology 11/22/16 13:00 Blood Culture - Final Blood 11/22/16 12:30 Blood Culture - Final Blood Laboratory Results 11/28/16 03:55 11/27/16 09:00 11/26/16 11/27/16 11/28/16 23:59 23:59 23:59 Intake Total 2455 850 150 Output Total 700 750 Balance 1755 100 150 PT 15.2 SEC (12.0-15.0) H 11/24/16 05:10 INR 1.20 (0.83-1.16) H 11/24/16 05:10 Physical Exam - Physical Exam General Appearance: alert, mild distress Respiratory: lungs clear Cardiac/Chest: regular rate, rhythm Abdomen: normal bowel sounds, soft Skin: other (multiple LE ecchymoses/purpura L>R. Yeast L inframammary fold. Malar rash.) Neuro/Psych: normal mood/affect (anxious to learn bmbx results) ICD10 Worksheet Patient Problems: Problems Problem Status Onset Anemia Acute GI bleed Acute Hypotension Acute
[2016-11-28] MEDS: MICONAZOLE NITRATE 15 GM CRTUBE TP SCH (17:30)
[2016-11-28] MEDS ORDERED: guaiFENesin/CODEINE PHOS 10 ML UDCUP PO PRN (21:35)
[2016-11-28] MEDS: ALPRAZolam 0.5 MG TAB PO SCH (22:07)
[2016-11-28] MEDS: QUEtiapine FUMARATE 25 MG TAB PO SCH (22:07)
[2016-11-29] MEDS: LEVOTHYROXINE 75 MCG TAB PO SCH (05:31)
[2016-11-29 05:56] LABS: % IMMATURE GRANULYOCYTES 1.1 % (0.0-1.1); ABSOLUTE IMMATURE GRANULOCYTES 0.02 10^3/uL (0.00-0.10); ADD DIFF? NO; ADD MORPH? NO; ADD SCAN? NO; ATYPICAL LYMPHOCYTE FLAG 0 (0-99); FRAGMENT RBC FLAG 0 (0-99); HEMATOCRIT 25.8 % (38.0-47.0); HEMOGLOBIN 8.4 g/dL (12.6-16.3); LEFT SHIFT FLG 0 (0-99); LIPEMIA HEMOLYSIS FLAG 80 (0-99); MEAN CELL HEMOGLOBIN 30.3 pg (27.9-34.1); MEAN CELL HEMOGLOBIN CONCENTR. 32.6 g/dL (32.4-36.7); MEAN CELL VOLUME 93.1 fL (81.5-99.8); MEAN PLATELET VOLUME 11.4 fL (8.7-11.7); PLATELET CLUMPS FLAG 10 (0-99); PLATELET COUNT 34 10^3/uL (150-400); RED BLOOD CELL COUNT 2.77 10^6/uL (4.18-5.33); RED CELL DISTRIBUTION WIDTH 18.5 % (11.5-15.2)
[2016-11-29 06:17] LABS: PLATELET ESTIMATE DECREASED (ADEQ)
[2016-11-29] MEDS: PANTOPRAZOLE SODIUM 40 MG TAB PO SCH ×2 (08:45→21:59)
[2016-11-29] MEDS: OMEGA-3 FATTY ACIDS 1,000 MG CAP PO SCH (08:45)
[2016-11-29] MEDS: oxyCODONE IR 5 MG TAB PO PRN ×3 (08:46→18:26)
[2016-11-29] MEDS: CHOLECALCIFEROL VIT D3 1,000 UNITS TAB PO SCH (08:46)
[2016-11-29] MEDS: lamoTRIgine 100 MG TAB PO SCH (08:46)
[2016-11-29] MEDS: MICONAZOLE NITRATE 15 GM CRTUBE TP SCH ×2 (08:51→21:59)
--- NOTE | 2016-11-29 11:11 | SOAPPROG ---
SOAP Progress Note Assessment/Plan: Assessment: 71 yo woman admitted s/p fall w hypotension discovered to have pancytopenia; hx of hypothyroidism and remote hx of colon ca 1. Pancytopenia CBC and hx concerning for underlying bone marrow process. Final pathology isn't available, but I spoke with Dr. Cifuentes this AM. He did not see any obvious leukemia/malignancy, cellularity about 35%, some special stains pending. No evidence of hemolysis - LDH ok, haptoglobin wnl Iron studies do not suggest any significant iron deficiency; retic count inappropriate for degree of anemia CBC has showed intermittent immature granulocytes No enlarged spleen on exam or by imaging ESR/CRP not significantly elevated I added an ELIZABETH Screen today because of malar rash. This is pending. DDX includes Hypocellular variant of MDS (given previous low plts), aplastic anemia (acquired or transient), or possibly LGL leukemia Other possibilities but less likely include acute leukemia; labs not c/w PNH or HLH. Lupus possible but also less likely. No transfusion requirements today Leukopenia: No e/o infection and ANC improved No need for abx at this time would not add growth factor at this time until we know details of BMBx Anemia: Improved Trend H/H for bleeding Heme occult+ but this could simply be from low platelets Tx for Hgb <7 Thrombocytopenia: Tx for bleeding or plts <10k 2. Hypotension - improved. 3. Hypoalbuminemia - given pancytopenia, this suggests a chronic process that may have evolved Plan: Continue supportive care for now. 11/29/16 11:08 Subjective: Says she is feeling better in general. Objective: Vital Signs Temp Pulse Resp BP Pulse Ox 36.5 C 79 18 128/70 H 100 11/29/16 08:00 11/29/16 08:00 11/29/16 08:00 11/29/16 08:00 11/29/16 08:00 Microbiology 11/22/16 13:00 Blood Culture - Final Blood 11/22/16 12:30 Blood Culture - Final Blood Laboratory Results 11/29/16 05:40 11/27/16 09:00 11/27/16 11/28/16 11/29/16 23:59 23:59 23:59 Intake Total 850 500 30 Output Total 750 300 Balance 100 500 -270 PT 15.2 SEC (12.0-15.0) H 11/24/16 05:10 INR 1.20 (0.83-1.16) H 11/24/16 05:10 Physical Exam - Physical Exam Respiratory: No rales Cardiac/Chest: regular rate, rhythm Skin: rash (malar rash less prominent today), other (purpuritic lesions fading a bit - more dusky/less red) Neuro/Psych: alert ICD10 Worksheet Patient Problems: Problems Problem Status Onset Anemia Acute GI bleed Acute Hypotension Acute
--- NOTE | 2016-11-29 13:30 | HOSPPROG ---
Hospitalist Progress Note Assessment/Plan: 71 yo F h/o remote colon CA, hypothyroidism, here w pancytopenia, gastritis, hypotension # hypotension/shock: initially on pressors but now off with BP stable. Etiology unclear--no e/o significant cardiac dysfunction by echo, no e/o sepsis. Has had anemia but only required tx of 1Unit. # pancytopenia: bm bx does not have evidence of leukemia per onc, at this point etiology for pancytopenia remains unclear, does not seem to be a rheumatologic issue. No indication for transfusion currently. Has been transfused total 5 units prbcs, 1 unit plts. # hypoalbuminemia/anasarca: 2/2 as-of-yet- unnamed inflammatory process, not significantly improved # pulmonary: ground glass opacities on CT, pulm has been following, no significant pulmonary complaints, will need f/u ct at some point # fall: multifactorial # proph: [facility] pharm VTE proph contraindicated given low platelets # dispo: IP status, dc unclear Patient new to my care. Old records reviewed and summarized as above. Care plan reviewed with Dr. Hunt as above. Further hx obtained from patients son present at bedside. Subjective: no significant overnight events, patient states she is feeling overall better today, she still has weakness, eating ok, sleeping well Objective: Vital Signs Temp Pulse Resp BP Pulse Ox 36.5 C 79 18 128/70 H 100 11/29/16 08:00 11/29/16 08:00 11/29/16 08:00 11/29/16 08:00 11/29/16 08:00 Laboratory Results 11/29/16 05:40 11/27/16 09:00 11/28/16 11/29/16 11/30/16 05:59 05:59 05:59 Intake Total 900 380 Output Total 500 50 250 Balance 400 330 -250 PT 15.2 SEC (12.0-15.0) H 11/24/16 05:10 INR 1.20 (0.83-1.16) H 11/24/16 05:10 chronically ill appearing anicteric, pale sclera op clear rrr no mrg cta with dec bs at bases soft nt nd 1-2+ pitting edema, L > R diffuse ecchymoses of LLE, diffuse ecchymoses upper and lower extremities oriented appropriate - Time Spent With Patient Time Spent with Patient: greater than 35 minutes Time Spent with Patient: Greater than 35 minutes spent on this patients care, greater than 50% of time spent counseling, educating, and coordinating care regarding the above mentioned plan. ICD10 Worksheet Patient Problems: Problems Problem Status Onset Anemia Acute Hypotension Acute GI bleed Acute
[2016-11-29] MEDS: ALPRAZolam 0.5 MG TAB PO SCH (21:59)
[2016-11-29] MEDS: QUEtiapine FUMARATE 25 MG TAB PO SCH (21:59)
[2016-11-30] MEDS: LEVOTHYROXINE 75 MCG TAB PO SCH (06:18)
[2016-11-30 06:32] LABS: % IMMATURE GRANULYOCYTES 1.1 % (0.0-1.1); ABSOLUTE IMMATURE GRANULOCYTES 0.02 10^3/uL (0.00-0.10); ADD DIFF? NO; ADD MORPH? NO; ADD SCAN? YES; FRAGMENT RBC FLAG 0 (0-99); HEMATOCRIT 24.3 % (38.0-47.0); HEMOGLOBIN 7.8 g/dL (12.6-16.3); LEFT SHIFT FLG 0 (0-99); LIPEMIA HEMOLYSIS FLAG 80 (0-99); MEAN CELL HEMOGLOBIN 30.6 pg (27.9-34.1); MEAN CELL HEMOGLOBIN CONCENTR. 32.1 g/dL (32.4-36.7); MEAN CELL VOLUME 95.3 fL (81.5-99.8); PLATELET CLUMPS FLAG 10 (0-99); RED BLOOD CELL COUNT 2.55 10^6/uL (4.18-5.33); RED CELL DISTRIBUTION WIDTH 18.1 % (11.5-15.2)
[2016-11-30 06:34] LABS: ATYPICAL LYMPHOCYTE FLAG 100 (0-99); PLATELET COUNT 31 10^3/uL (150-400)
[2016-11-30 06:46] LABS: ALANINE AMINOTRANSFERASE 25 IU/L (9-52); ALBUMIN 2.8 g/dL (3.5-5.0); ALKALINE PHOSPHATASE 51 IU/L (38-126); ANION GAP 6 mEq/L (8-16); ASPARTATE AMINOTRANSFERASE 13 IU/L (14-46); CALCIUM 8.3 mg/dL (8.5-10.4); CARBON DIOXIDE 26 mEq/l (22-31); CHLORIDE 108 mEq/L (97-110); CREATININE 0.7 mg/dL (0.6-1.0); GLOMERULAR FILTRATION RATE > 60; GLUCOSE 81 mg/dL (70-100); POTASSIUM 3.5 mEq/L (3.5-5.2); SODIUM 140 mEq/L (134-144); TOTAL PROTEIN 4.7 g/dL (6.3-8.2)
[2016-11-30 07:01] LABS: SCAN NEGATIVE
[2016-11-30] MEDS: oxyCODONE IR 5 MG TAB PO PRN ×3 (07:46→15:59)
[2016-11-30] MEDS: OMEGA-3 FATTY ACIDS 1,000 MG CAP PO SCH (08:29)
[2016-11-30] MEDS: PANTOPRAZOLE SODIUM 40 MG TAB PO SCH ×2 (08:29→21:49)
[2016-11-30] MEDS: CHOLECALCIFEROL VIT D3 1,000 UNITS TAB PO SCH (08:29)
[2016-11-30] MEDS: lamoTRIgine 100 MG TAB PO SCH (08:29)
[2016-11-30 09:15] LABS: PLATELET ESTIMATE DECREASED (ADEQ)
[2016-11-30] MEDS: MICONAZOLE NITRATE 15 GM CRTUBE TP SCH ×2 (10:23→21:49)
--- NOTE | 2016-11-30 14:39 | SOAPPROG ---
SOAP Progress Note Assessment/Plan: Assessment: 71 yo woman admitted s/p fall w hypotension discovered to have pancytopenia; hx of hypothyroidism and remote hx of colon ca 1. Pancytopenia CBC and hx concerning for underlying bone marrow process. Final pathology isn't available, but I spoke with Dr. Cifuentes this AM. He did not see any obvious leukemia/malignancy, cellularity about 35%, Plasma cells are increased at 12% on final path. We will need to rule out a non-secreting multiple myeloma. I'll order a bone survey to look for classic punched out lytic lesions. Leukopenia: No e/o infection and ANC improved No need for abx at this time would not add growth factor at this time until we know details of BMBx Anemia: Hgb trending down but still above 7. Thrombocytopenia: Tx for bleeding or plts <10k 2. Hypotension - improved. 3. Hypoalbuminemia - given pancytopenia, this suggests a chronic process that may have evolved Plan: - check [id number] - recheck CRP - check osseous bone survey looking for lytic lesions. Subjective: No new complaints. Sitting in a chair. Objective: Vital Signs Temp Pulse Resp BP Pulse Ox 36.4 C 83 18 110/66 97 11/30/16 11:36 11/30/16 11:36 11/30/16 11:36 11/30/16 11:36 11/30/16 11:36 Laboratory Results 11/30/16 06:18 11/30/16 06:18 11/28/16 11/29/16 11/30/16 23:59 23:59 23:59 Intake Total 500 30 200 Output Total 550 1400 Balance 500 -520 -1200 PT 15.2 SEC (12.0-15.0) H 11/24/16 05:10 INR 1.20 (0.83-1.16) H 11/24/16 05:10 Physical Exam - Physical Exam General Appearance: alert, no apparent distress Skin: pallor ICD10 Worksheet Patient Problems: Problems Problem Status Onset Anemia Acute GI bleed Acute Hypotension Acute
--- NOTE | 2016-11-30 16:20 | HOSPPROG ---
Hospitalist Progress Note Assessment/Plan: 71 yo F h/o remote colon CA, hypothyroidism, here w pancytopenia, gastritis, hypotension # pancytopenia: bm bx does not have evidence of leukemia per onc, at this point etiology for pancytopenia remains unclear, does not seem to be a rheumatologic issue. Has been transfused total 5 units prbcs, 1 unit plts. counts remain low. ? non secreting myeloma with plasma cells high and skeletal survey pending to eval for lytic lesions. # hypotension/shock: initially on pressors but now off with BP stable. Etiology unclear--no e/o significant cardiac dysfunction by echo, no e/o sepsis. Has had anemia but only required tx of 1Unit. # hypoalbuminemia/anasarca: 2/2 as-of-yet- unnamed inflammatory process, not significantly improved # pulmonary: ground glass opacities on CT, pulm has been following, no significant pulmonary complaints, will need f/u ct at some point # fall: multifactorial # proph: [facility] pharm VTE proph contraindicated given low platelets # dispo: IP status, dc unclear but likely to snf Care plan reviewed with Dr. Hunt. Subjective: no signficant overnight events, patient feeling a bit better but still weak, eating ok Objective: Vital Signs Temp Pulse Resp BP Pulse Ox 36.4 C 83 18 110/66 97 11/30/16 11:36 11/30/16 11:36 11/30/16 11:36 11/30/16 11:36 11/30/16 11:36 Laboratory Results 11/30/16 06:18 11/30/16 06:18 11/29/16 11/30/16 12/01/16 05:59 05:59 05:59 Intake Total 380 200 Output Total 50 500 1400 Balance 330 -300 -1400 PT 15.2 SEC (12.0-15.0) H 11/24/16 05:10 INR 1.20 (0.83-1.16) H 11/24/16 05:10 chronically ill appearing anicteric, pale sclera op clear rrr no mrg cta with dec bs at bases soft nt nd 1-2+ pitting edema, L > R diffuse ecchymoses of LLE, diffuse ecchymoses upper and lower extremities oriented appropriate - Time Spent With Patient Time Spent with Patient: greater than 35 minutes Time Spent with Patient: Greater than 35 minutes spent on this patients care, greater than 50% of time spent counseling, educating, and coordinating care regarding the above mentioned plan. ICD10 Worksheet Patient Problems: Problems Problem Status Onset Anemia Acute GI bleed Acute Hypotension Acute
[2016-11-30] MEDS: ALPRAZolam 0.5 MG TAB PO SCH (21:49)
[2016-11-30] MEDS: QUEtiapine FUMARATE 25 MG TAB PO SCH (21:49)
[2016-12-01] MEDS: LEVOTHYROXINE 75 MCG TAB PO SCH (05:56)
[2016-12-01 06:10] LABS: % IMMATURE GRANULYOCYTES 1.4 % (0.0-1.1); ABSOLUTE IMMATURE GRANULOCYTES 0.02 10^3/uL (0.00-0.10); ADD DIFF? NO; ADD MORPH? NO; ADD SCAN? NO; ATYPICAL LYMPHOCYTE FLAG 0 (0-99); FRAGMENT RBC FLAG 0 (0-99); HEMATOCRIT 22.7 % (38.0-47.0); HEMOGLOBIN 7.2 g/dL (12.6-16.3); LEFT SHIFT FLG 0 (0-99); LIPEMIA HEMOLYSIS FLAG 80 (0-99); MEAN CELL HEMOGLOBIN 30.4 pg (27.9-34.1); MEAN CELL HEMOGLOBIN CONCENTR. 31.7 g/dL (32.4-36.7); MEAN CELL VOLUME 95.8 fL (81.5-99.8); MEAN PLATELET VOLUME 9.8 fL (8.7-11.7); PLATELET CLUMPS FLAG 10 (0-99); RED BLOOD CELL COUNT 2.37 10^6/uL (4.18-5.33); RED CELL DISTRIBUTION WIDTH 17.5 % (11.5-15.2)
[2016-12-01 06:12] LABS: PLATELET COUNT 27 10^3/uL (150-400)
[2016-12-01 06:26] LABS: ANION GAP 9 mEq/L (8-16); CALCIUM 8.1 mg/dL (8.5-10.4); CARBON DIOXIDE 25 mEq/l (22-31); CHLORIDE 106 mEq/L (97-110); CREATININE 0.7 mg/dL (0.6-1.0); GLOMERULAR FILTRATION RATE > 60; GLUCOSE 74 mg/dL (70-100); POTASSIUM 3.4 mEq/L (3.5-5.2); SODIUM 140 mEq/L (134-144)
[2016-12-01 06:28] LABS: PLATELET ESTIMATE DECREASED (ADEQ)
[2016-12-01] MEDS: oxyCODONE IR 5 MG TAB PO PRN (07:36)
[2016-12-01] MEDS: CHOLECALCIFEROL VIT D3 1,000 UNITS TAB PO SCH (07:38)
[2016-12-01] MEDS: PANTOPRAZOLE SODIUM 40 MG TAB PO SCH ×2 (07:39→22:05)
[2016-12-01] MEDS: OMEGA-3 FATTY ACIDS 1,000 MG CAP PO SCH (07:39)
[2016-12-01] MEDS: lamoTRIgine 100 MG TAB PO SCH (07:39)
[2016-12-01] MEDS: MICONAZOLE NITRATE 15 GM CRTUBE TP SCH ×2 (07:39→22:09)
--- NOTE | 2016-12-01 10:28 | SOAPPROG ---
SOAP Progress Note Assessment/Plan: Assessment: 71 yo woman admitted s/p fall w hypotension discovered to have pancytopenia; hx of hypothyroidism and remote hx of colon ca 1. Pancytopenia CBC and hx concerning for underlying bone marrow process. Patient has increased plasma cells on her bone marrow biopsy at 12%. Her osseous bone survey show 3 compression fractures in T spine. No obvious lytic lesions. We need to check an MRI of the Tspine to distinguish osteoporotic fractures vs. pathologic fractures. No transfusions are needed today Plan: - MRI T spine w/wo contrast Subjective: walked in [place] yesterday with assistance Objective: Vital Signs Temp Pulse Resp BP Pulse Ox 36.6 C 80 16 120/60 97 12/01/16 08:35 12/01/16 08:35 12/01/16 08:35 12/01/16 08:35 12/01/16 08:35 Laboratory Results 12/01/16 06:00 12/01/16 06:00 11/29/16 11/30/16 12/01/16 23:59 23:59 23:59 Intake Total 30 1200 400 Output Total 550 1400 800 Balance -520 -200 -400 PT 15.2 SEC (12.0-15.0) H 11/24/16 05:10 INR 1.20 (0.83-1.16) H 11/24/16 05:10 Physical Exam - Physical Exam General Appearance: alert, mild distress Skin: pallor ICD10 Worksheet Patient Problems: Problems Problem Status Onset Anemia Acute GI bleed Acute Hypotension Acute
[2016-12-01] MEDS ORDERED: PROTOCOL MAGNESIUM 1 DOSE IV PRN (11:32)
[2016-12-01] MEDS ORDERED: PROTOCOL POTASSIUM 1 DOSE MISC PRN (11:32)
[2016-12-01] MEDS ORDERED: POTASSIUM CL 10 MEQ TAB PO ONE ×2 (11:59→22:16)
--- NOTE | 2016-12-01 13:00 | HOSPPROG ---
Hospitalist Progress Note Assessment/Plan: 71 yo F h/o remote colon CA, hypothyroidism, here w pancytopenia, gastritis, hypotension # pancytopenia: new onset with cbc in September that was fairly normal other than mildly low WBC. No real improvement since admission. BM biopsy notable for elevated plasma cells with spep mildly abnormal, but no e/o MDS or leukemia. Bone survey revealing for multiple compression fractures and f/u MRI pending. ELIZABETH pending and will add RF as well--further autoimmune w/u may be needed if positive. Hep serologies negative, apparently not a drinker and etoh level negative on admit. Has been on lamictal and quetiapine for bipolar which both are associated with blood dyscrasias and will hold those for now. B12 and TSH are WNL, will add folate and copper levels as well. ESR normal and CRP elevated but trending down. Unconj bili mildly elevated--Gilbert's versus hemolysis. Will trend. # hypotension/shock: initially on pressors but now off with BP stable. Etiology unclear--no e/o significant cardiac dysfunction by echo, no e/o sepsis. Has had anemia but only required tx of 1Unit. # hypoalbuminemia/anasarca: 2/2 as-of-yet- unnamed inflammatory process, not significantly improved # pulmonary: ground glass opacities on CT, pulm has been following, no significant pulmonary complaints, will need f/u ct at some point. Again query some sort of underlying rheumatologic process as above. Pulmonary status stable. # fall: multifactorial occurring pre admission # proph: [facility] pharm VTE proph contraindicated given low platelets # dispo: IP status, dc unclear but likely to snf Care plan reviewed with Dr. Marilee CM and patients son present at bedside. Subjective: no significant overnight events, patient feeling a bit better, up with pt Objective: Vital Signs Temp Pulse Resp BP Pulse Ox 36.6 C 80 16 120/60 97 12/01/16 08:35 12/01/16 08:35 12/01/16 08:35 12/01/16 08:35 12/01/16 08:35 Laboratory Results 12/01/16 06:00 12/01/16 06:00 11/30/16 12/01/16 12/02/16 05:59 05:59 05:59 Intake Total 200 1400 Output Total 500 1700 500 Balance -300 -300 -500 PT 15.2 SEC (12.0-15.0) H 11/24/16 05:10 INR 1.20 (0.83-1.16) H 11/24/16 05:10 chronically ill appearing anicteric, pale sclera op clear rrr no mrg cta with dec bs at bases soft nt nd 1-2+ pitting edema, L > R diffuse ecchymoses of LLE, diffuse ecchymoses upper and lower extremities oriented appropriate - Time Spent With Patient Time Spent with Patient: greater than 35 minutes Time Spent with Patient: Greater than 35 minutes spent on this patients care, greater than 50% of time spent counseling, educating, and coordinating care regarding the above mentioned plan. ICD10 Worksheet Patient Problems: Problems Problem Status Onset Anemia Acute GI bleed Acute Hypotension Acute
[2016-12-01 16:44] LABS: FOLATE SERUM 6.42 ng/mL (2.80 - >20.00)
[2016-12-01 20:18] LABS: POTASSIUM 3.5 mEq/L (3.5-5.2)
[2016-12-01] MEDS: ALPRAZolam 0.5 MG TAB PO SCH (22:05)
[2016-12-01] MEDS: QUEtiapine FUMARATE 50 MG TAB PO SCH (23:38)
[2016-12-02] MEDS: LEVOTHYROXINE 75 MCG TAB PO SCH (05:50)
[2016-12-02 05:55] LABS: % IMMATURE GRANULYOCYTES 0.7 % (0.0-1.1); ABSOLUTE IMMATURE GRANULOCYTES 0.01 10^3/uL (0.00-0.10); ADD DIFF? NO; ADD MORPH? NO; ADD SCAN? NO; ATYPICAL LYMPHOCYTE FLAG 0 (0-99); FRAGMENT RBC FLAG 0 (0-99); HEMATOCRIT 22.3 % (38.0-47.0); HEMOGLOBIN 7.1 g/dL (12.6-16.3); LEFT SHIFT FLG 0 (0-99); LIPEMIA HEMOLYSIS FLAG 80 (0-99); MEAN CELL HEMOGLOBIN 30.2 pg (27.9-34.1); MEAN CELL HEMOGLOBIN CONCENTR. 31.8 g/dL (32.4-36.7); MEAN CELL VOLUME 94.9 fL (81.5-99.8); MEAN PLATELET VOLUME 10.8 fL (8.7-11.7); PLATELET CLUMPS FLAG 0 (0-99); RED BLOOD CELL COUNT 2.35 10^6/uL (4.18-5.33)
[2016-12-02 05:59] LABS: PLATELET COUNT 28 10^3/uL (150-400)
[2016-12-02 06:05] LABS: ALANINE AMINOTRANSFERASE 28 IU/L (9-52); ALBUMIN 2.6 g/dL (3.5-5.0); ALKALINE PHOSPHATASE 50 IU/L (38-126); ANION GAP 8 mEq/L (8-16); ASPARTATE AMINOTRANSFERASE 14 IU/L (14-46); BILIRUBIN,TOTAL 1.5 mg/dL (0.1-1.4); BILIRUBIN-CONJUGATED 0.4 mg/dL (0.0-0.5); BILIRUBIN-UNCONJUGATED 1.1 mg/dL (0.0-1.1); CALCIUM 8.2 mg/dL (8.5-10.4); CARBON DIOXIDE 25 mEq/l (22-31); CHLORIDE 106 mEq/L (97-110); CREATININE 0.6 mg/dL (0.6-1.0); GLOMERULAR FILTRATION RATE > 60; GLUCOSE 85 mg/dL (70-100); MAGNESIUM 1.7 mg/dL (1.6-2.3); POTASSIUM 3.8 mEq/L (3.5-5.2); SODIUM 139 mEq/L (134-144); TOTAL PROTEIN 4.6 g/dL (6.3-8.2)
[2016-12-02 06:26] LABS: PLATELET ESTIMATE DECREASED (ADEQ)
[2016-12-02] MEDS: OMEGA-3 FATTY ACIDS 1,000 MG CAP PO SCH (07:39)
[2016-12-02] MEDS: oxyCODONE IR 5 MG TAB PO PRN (07:39)
[2016-12-02] MEDS: PANTOPRAZOLE SODIUM 40 MG TAB PO SCH ×2 (07:39→21:52)
[2016-12-02] MEDS: CHOLECALCIFEROL VIT D3 1,000 UNITS TAB PO SCH (07:40)
[2016-12-02 10:24] LABS: BANDING METHODS See Comments
--- NOTE | 2016-12-02 10:31 | WOCRNPDOC ---
WOCRN Advanced Assessment Note - Skin Integrity Problem, Advanced Assess Medial Sacrum Dressing Type: Allevyn Life Dressing Description: Clean/Dry, Intact Exudate Amount: None Exudate Characteristic(s): None Integumentary Issue Intervention: Visualized Under Dressing Tiffanie Wound Tissue: Intact Tiffanie Wound Swelling: None Skin Integrity Problem Comment: Ecchymosis noted on previous assessment resolved , indicating this injury was more than likely r/t trauma and not pressure. Order for Allevyn Life sacral dressing dc'd. Will follow up with patient in she is still inpatient in 1 week to ensure site remains healed. Left Sacrum Dressing Type: Allevyn Life Dressing Description: Clean/Dry, Intact Exudate Amount: None Exudate Characteristic(s): None Integumentary Issue Intervention: Visualized Under Dressing Tiffanie Wound Tissue: Intact Tiffanie Wound Swelling: None Wound Bed Color: Purple Site Odor: None Skin Integrity Problem Comment: Resolving ecchymosis noted to the L of sacrum. The evolution of this injury is more indicative of trauma and not pressure, so Allevyn Life sacral dressing order will be dc'd today. Wound care will follow up with patient again to reassess on 12/09.
[2016-12-02] MEDS: POTASSIUM CL 10 MEQ TAB PO ONE ×2 (10:44→10:51)
[2016-12-02] MEDS ORDERED: POTASSIUM CL 10 MEQ TAB PO ONE ×2 (11:00→19:52)
--- NOTE | 2016-12-02 11:06 | HOSPPROG ---
Hospitalist Progress Note Assessment/Plan: 71 yo F h/o remote colon CA, hypothyroidism, here w pancytopenia and resolved hypotension/shock # pancytopenia: new onset with cbc in September that was fairly normal other than mildly low WBC. BM biopsy notable for elevated plasma cells with spep mildly abnormal. Bone survey and chest CT revealing for multiple compression fractures w/ f/u MRI pending to eval for lytic lesions. ELIZABETH and RF normal. Hep serologies negative, had prior etoh hx but has not been drinking for several months and no e/o liver disease on imaging. Has been on lamictal and quetiapine for bipolar which both are associated with blood dyscrasias and will hold those for now. B12, folate, TSH wnl. Transfuse prn. # hypotension/shock: initially on pressors but now off with BP stable. Etiology unclear--no e/o significant cardiac dysfunction by echo, no e/o sepsis. # hypoalbuminemia/anasarca: 2/2 as-of-yet- unnamed inflammatory process, not significantly improved # pulmonary: ground glass opacities on CT, pulm has been following, no significant pulmonary complaints, will need f/u ct at some point. Again query some sort of underlying rheumatologic process as above. Pulmonary status stable. # fall: multifactorial occurring pre admission # proph: scd's, pharm VTE proph contraindicated given low platelets # dispo: IP status, dc unclear but likely to snf Care plan reviewed with Dr. Marilee CM and patients son present at bedside. Objective: Vital Signs Temp Pulse Resp BP Pulse Ox 36.7 C 109 H 16 110/60 91 L 12/02/16 08:00 12/02/16 08:00 12/02/16 08:00 12/02/16 08:00 12/02/16 08:00 Laboratory Results 12/02/16 05:45 12/02/16 05:45 12/01/16 12/02/16 12/03/16 05:59 05:59 05:59 Intake Total 1400 250 Output Total 1700 1250 Balance -300 -1000 PT 15.2 SEC (12.0-15.0) H 11/24/16 05:10 INR 1.20 (0.83-1.16) H 11/24/16 05:10 chronically ill appearing anicteric, pale sclera op clear rrr no mrg cta with dec bs at bases soft nt nd 1-2+ pitting edema, L > R diffuse ecchymoses of LLE, diffuse ecchymoses upper and lower extremities oriented appropriate ICD10 Worksheet Patient Problems: Problems Problem Status Onset Anemia Acute GI bleed Acute Hypotension Acute
--- NOTE | 2016-12-02 11:16 | SOAPPROG ---
SOAP Progress Note Assessment/Plan: Assessment: 71 yo woman admitted s/p fall w hypotension discovered to have pancytopenia; hx of hypothyroidism and remote hx of colon ca 1. Pancytopenia - hgb 7.1, WBC 1.5k, plts 28k. Counts are fairly stable. She doesn't require transfusion today (although HGB is close). CBC and hx concerning for underlying bone marrow process. Patient has increased plasma cells on her bone marrow biopsy at 12%. Her osseous bone survey show 3 compression fractures in T spine. No obvious lytic lesions. She is going to get her MRI today. Plan: - MRI T spine w/wo contrast today - No transfusions are needed today - Further recommendation based on pending information Subjective: No new complaints. Walked with physical therapy today. Objective: Vital Signs Temp Pulse Resp BP Pulse Ox 36.7 C 109 H 16 110/60 91 L 12/02/16 08:00 12/02/16 08:00 12/02/16 08:00 12/02/16 08:00 12/02/16 08:00 Laboratory Results 12/02/16 05:45 12/02/16 05:45 11/30/16 12/01/16 12/02/16 23:59 23:59 23:59 Intake Total 1200 400 250 Output Total 1400 1050 500 Balance -200 -650 -250 PT 15.2 SEC (12.0-15.0) H 11/24/16 05:10 INR 1.20 (0.83-1.16) H 11/24/16 05:10 Physical Exam - Physical Exam General Appearance: alert Respiratory: lungs clear Cardiac/Chest: regular rate, rhythm, edema (bilateral LE 2+) Skin: pallor, other (purpura on lower extremities is diminishing) Neuro/Psych: normal mood/affect ICD10 Worksheet Patient Problems: Problems Problem Status Onset Anemia Acute GI bleed Acute Hypotension Acute
[2016-12-02] MEDS ORDERED: MAGNESIUM SULF 1 GM/DEXTROSE 100 ML IV ONE (12:00)
[2016-12-02] MEDS ORDERED: GADOBUTROL 10 ML VIAL IVP ONE (12:00)
[2016-12-02] MEDS: MICONAZOLE NITRATE 15 GM CRTUBE TP SCH ×2 (14:32→20:06)
[2016-12-02 19:37] LABS: POTASSIUM 3.5 mEq/L (3.5-5.2)
[2016-12-02] MEDS: QUEtiapine FUMARATE 50 MG TAB PO SCH (21:52)
[2016-12-02] MEDS: ALPRAZolam 0.5 MG TAB PO SCH (21:52)
[2016-12-03] MEDS: LEVOTHYROXINE 75 MCG TAB PO SCH (06:13)
[2016-12-03 06:34] LABS: % IMMATURE GRANULYOCYTES 0.6 % (0.0-1.1); ABSOLUTE IMMATURE GRANULOCYTES 0.01 10^3/uL (0.00-0.10); ADD DIFF? NO; ADD MORPH? NO; ADD SCAN? NO; ATYPICAL LYMPHOCYTE FLAG 0 (0-99); FRAGMENT RBC FLAG 0 (0-99); HEMATOCRIT 23.6 % (38.0-47.0); HEMOGLOBIN 7.6 g/dL (12.6-16.3); LEFT SHIFT FLG 0 (0-99); LIPEMIA HEMOLYSIS FLAG 80 (0-99); MEAN CELL HEMOGLOBIN 30.9 pg (27.9-34.1); MEAN CELL HEMOGLOBIN CONCENTR. 32.2 g/dL (32.4-36.7); MEAN CELL VOLUME 95.9 fL (81.5-99.8); MEAN PLATELET VOLUME 11.1 fL (8.7-11.7); PLATELET CLUMPS FLAG 0 (0-99); RED BLOOD CELL COUNT 2.46 10^6/uL (4.18-5.33); RED CELL DISTRIBUTION WIDTH 16.9 % (11.5-15.2)
[2016-12-03 06:47] LABS: PLATELET COUNT 34 10^3/uL (150-400)
[2016-12-03 06:57] LABS: ALANINE AMINOTRANSFERASE 24 IU/L (9-52); ALBUMIN 3.1 g/dL (3.5-5.0); ALKALINE PHOSPHATASE 63 IU/L (38-126); ANION GAP 6 mEq/L (8-16); ASPARTATE AMINOTRANSFERASE 14 IU/L (14-46); BILIRUBIN,TOTAL 1.8 mg/dL (0.1-1.4); BILIRUBIN-CONJUGATED 0.4 mg/dL (0.0-0.5); BILIRUBIN-UNCONJUGATED 1.4 mg/dL (0.0-1.1); CALCIUM 8.4 mg/dL (8.5-10.4); CARBON DIOXIDE 27 mEq/l (22-31); CHLORIDE 106 mEq/L (97-110); CREATININE 0.6 mg/dL (0.6-1.0); GLOMERULAR FILTRATION RATE > 60; GLUCOSE 83 mg/dL (70-100); SODIUM 139 mEq/L (134-144); TOTAL PROTEIN 5.1 g/dL (6.3-8.2)
[2016-12-03 07:02] LABS: PLATELET ESTIMATE DECREASED (ADEQ)
[2016-12-03] MEDS: OMEGA-3 FATTY ACIDS 1,000 MG CAP PO SCH (07:31)
[2016-12-03] MEDS: CHOLECALCIFEROL VIT D3 1,000 UNITS TAB PO SCH (07:31)
[2016-12-03] MEDS: oxyCODONE IR 5 MG TAB PO PRN ×2 (07:31→13:19)
[2016-12-03] MEDS: PANTOPRAZOLE SODIUM 40 MG TAB PO SCH ×2 (07:32→21:57)
[2016-12-03] MEDS: MICONAZOLE NITRATE 15 GM CRTUBE TP SCH ×2 (07:32→21:57)
--- NOTE | 2016-12-03 11:39 | SOAPPROG ---
SOAP Progress Note Assessment/Plan: Assessment: ssessment: 71 yo woman admitted s/p fall w hypotension discovered to have pancytopenia; hx of hypothyroidism and remote hx of colon ca 1. Pancytopenia - hgb 7.6, WBC 1.7k, plts 34k. Counts are fairly stable. She doesn't require transfusion today (although HGB is close). CBC and hx concerning for underlying bone marrow process. Patient has increased plasma cells on her bone marrow biopsy at 12%. Her osseous bone survey show 3 compression fractures in T spine. No obvious lytic lesions. MRI shows compression fractures but no evidence myeloma Plan: Counts are stable, I do not think she has myeloma. I think another bone marrow biopsy would be indicated but she declines. Plan is for snf and out pt follow up.Restart psych meds 11/23/16 12:20 11/24/16 11:31 12/03/16 11:35 12/03/16 11:37 12/03/16 11:37 Subjective: A bit agitated Objective: Vital Signs Temp Pulse Resp BP Pulse Ox 97.7 F 77 18 102/58 L 99 12/03/16 08:35 12/03/16 08:35 12/03/16 08:35 12/03/16 08:35 12/03/16 08:35 Laboratory Results 12/03/16 06:30 12/03/16 06:30 12/02/16 12/03/16 12/04/16 05:59 05:59 05:59 Intake Total 250 30 Output Total 1250 Balance -1000 30 PT 15.2 SEC (12.0-15.0) H 11/24/16 05:10 INR 1.20 (0.83-1.16) H 11/24/16 05:10 Physical Exam - Physical Exam General Appearance: alert, mild distress Respiratory: lungs clear Cardiac/Chest: regular rate, rhythm Abdomen: normal bowel sounds, non-tender ICD10 Worksheet Patient Problems: Problems Problem Status Onset Anemia Acute GI bleed Acute Hypotension Acute
--- NOTE | 2016-12-03 11:58 | HOSPPROG ---
Hospitalist Progress Note Assessment/Plan: 71 yo F h/o remote colon CA, hypothyroidism, here w pancytopenia and resolved hypotension/shock # pancytopenia: new onset with cbc in September that was fairly normal other than mildly low WBC. BM biopsy (nondiagnostic) notable for elevated plasma cells with spep mildly abnormal. Bone survey and chest CT revealing for multiple compression fractures. ELIZABETH and RF normal. Hep serologies negative, had prior etoh hx but has not been drinking for several months and no e/o liver disease on imaging. -I reviewed the MRI of the spine done 12/02 negative for lytic lesions -will resume Seroquel and Lamictal (doubt that these are causing her bone marrow suppression) -I discussed the case with Dr. Barrios who is recommending repeating an bone marrow biopsy. I discussed this with the patient who is adamantly refusing further procedures at this time. She does verbalize understanding that we do not currently have a diagnosis for her pancytopenia and is frustrated by this. # hypotension/shock: initially on pressors but now off with BP stable. Etiology unclear--no e/o significant cardiac dysfunction by echo, no e/o sepsis. # hypoalbuminemia/anasarca: 2/ as-of-yet- unnamed inflammatory process, not significantly improved # pulmonary: ground glass opacities on CT, pulm has been following, no significant pulmonary complaints, will need f/u ct at some point. Again query some sort of underlying rheumatologic process as above. Pulmonary status stable. # fall: multifactorial occurring pre admission # proph: scd's, pharm VTE proph contraindicated given low platelets # dispo: IP status, dc unclear but likely to snf Care plan reviewed with Dr. Barrios Plan to DC to [facility] once arrangements are in place Subjective: Denies back pain. continues to have bruising of the legs. denies fevers or chills Objective: Vital Signs Temp Pulse Resp BP Pulse Ox 36.5 C 77 18 102/58 L 99 12/03/16 08:35 12/03/16 08:35 12/03/16 08:35 12/03/16 08:35 12/03/16 08:35 Laboratory Results 12/03/16 06:30 12/03/16 06:30 12/02/16 12/03/16 12/04/16 05:59 05:59 05:59 Intake Total 250 30 Output Total 1250 Balance -1000 30 PT 15.2 SEC (12.0-15.0) H 11/24/16 05:10 INR 1.20 (0.83-1.16) H 11/24/16 05:10 - Physical Exam Constitutional: no apparent distress, appears nourished, not in pain Ears, Nose, Mouth, Throat: moist mucous membranes, hearing normal, ears appear normal, no oral mucosal ulcers Cardiovascular: regular rate and rhythym, no murmur, rub, or gallop Respiratory: no respiratory distress, no rales or rhonchi, clear to auscultation Gastrointestinal: normoactive bowel sounds, soft, non-tender abdomen, no palpable masses Skin: other (ecchymosis/purpura over bilat legs) Neurologic: AAOx3, sensation intact bilaterally ICD10 Worksheet Patient Problems: Problems Problem Status Onset Anemia Acute Hypotension Acute GI bleed Acute
[2016-12-03] MEDS: lamoTRIgine 100 MG TAB PO SCH (16:26)
[2016-12-03] MEDS: ALPRAZolam 0.5 MG TAB PO SCH (21:56)
[2016-12-03] MEDS: QUEtiapine FUMARATE 50 MG TAB PO SCH (21:57)
[2016-12-04] MEDS: LEVOTHYROXINE 75 MCG TAB PO SCH (04:47)
[2016-12-04 05:24] LABS: % IMMATURE GRANULYOCYTES 0.5 % (0.0-1.1); ABSOLUTE IMMATURE GRANULOCYTES 0.01 10^3/uL (0.00-0.10); ADD DIFF? NO; ADD MORPH? NO; ADD SCAN? NO; ATYPICAL LYMPHOCYTE FLAG 60 (0-99); FRAGMENT RBC FLAG 0 (0-99); HEMATOCRIT 24.4 % (38.0-47.0); HEMOGLOBIN 7.8 g/dL (12.6-16.3); LEFT SHIFT FLG 0 (0-99); LIPEMIA HEMOLYSIS FLAG 80 (0-99); MEAN CELL VOLUME 96.8 fL (81.5-99.8); MEAN PLATELET VOLUME 11.7 fL (8.7-11.7); PLATELET CLUMPS FLAG 0 (0-99); RED BLOOD CELL COUNT 2.52 10^6/uL (4.18-5.33); RED CELL DISTRIBUTION WIDTH 17.1 % (11.5-15.2)
[2016-12-04 05:45] LABS: ANION GAP 7 mEq/L (8-16); CALCIUM 8.6 mg/dL (8.5-10.4); CARBON DIOXIDE 28 mEq/l (22-31); CHLORIDE 104 mEq/L (97-110); CREATININE 0.6 mg/dL (0.6-1.0); GLOMERULAR FILTRATION RATE > 60; GLUCOSE 82 mg/dL (70-100); POTASSIUM 3.9 mEq/L (3.5-5.2); SODIUM 139 mEq/L (134-144)
[2016-12-04 05:46] LABS: PLATELET COUNT 33 10^3/uL (150-400)
[2016-12-04 06:42] LABS: PLATELET ESTIMATE DECREASED (ADEQ)
[2016-12-04] MEDS: OMEGA-3 FATTY ACIDS 1,000 MG CAP PO SCH (08:40)
[2016-12-04] MEDS: lamoTRIgine 100 MG TAB PO SCH (08:40)
[2016-12-04] MEDS: PANTOPRAZOLE SODIUM 40 MG TAB PO SCH (08:40)
[2016-12-04] MEDS: CHOLECALCIFEROL VIT D3 1,000 UNITS TAB PO SCH (08:41)
[2016-12-04] MEDS: oxyCODONE IR 5 MG TAB PO PRN (08:41)
[2016-12-04 09:56] VITALS: BP 124/66; PULSE 85; RESP 16; TEMP 98; O2SAT 94
[2016-12-04] MEDS: MICONAZOLE NITRATE 15 GM CRTUBE TP SCH (10:00)
--- NOTE | 2016-12-04 10:09 | PDIAF ---
- Diagnosis Diagnosis: PANCYTOPENIA OF UNKNOWN ETIOLOGY/GASTRITIS Code Status: Full Code - Medication Management Discharge Medications: Medications to Continue on Transfer ALPRAZolam [Xanax 0.5 MG (*)] 0.5 mg PO HS 11/22/16 [Last Taken 11/21/16] Cholecalciferol Vit D3 [Vitamin D3 (*)] 1,000 units PO DAILY 11/22/16 [Last Taken Unknown] Levothyroxine [Synthroid 75 mcg (*)] 75 mcg PO DAILY06 11/22/16 [Last Taken ] [place]-3 Fatty Acids [Fish Oil 1000 mg (*)] 1,000 mg PO DAILY 11/22/16 [Last Taken Unknown] QUEtiapine FUMARATE [Seroquel 25 mg (*)] 100 mg PO HS 11/22/16 [Last Taken 11/21] lamoTRIgine [LamICTAL 100 MG (*)] 100 mg PO DAILY 11/22/16 [Last Taken 11/21/16] Acetaminophen [Tylenol 325mg (*)] 650 mg PO Q4HRS PRN #0 tab 12/04/16 [Last Taken Unknown] Pantoprazole Sodium [Protonix 40mg (*)] 40 mg PO DAILY #30 tab 12/04/16 [Last Taken Unknown] oxyCODONE IR [Oxycodone Ir (*)] 5 mg PO Q4HRS PRN #0 tab 12/04/16 [Last Taken Unknown] Discharge Medications: Refer to the Discharge Home Medication list for PRN reason. - Orders Services needed: Physical Therapy, Occupational Therapy Diet Recommendation: no restrictions on diet Diet Texture: Regular Texture Diet - Follow Up Care Current Providers and Referrals: Patient,NotPresent [Unknown] - As per Instructions
--- NOTE | 2016-12-04 10:18 | PDIAF ---
- Diagnosis Diagnosis: PANCYTOPENIA OF UNKNOWN ETIOLOGY/DUODENITIS Code Status: Full Code - Medication Management Discharge Medications: Medications to Continue on Transfer ALPRAZolam [Xanax 0.5 MG (*)] 0.5 mg PO HS 11/22/16 [Last Taken 11/21/16] Cholecalciferol Vit D3 [Vitamin D3 (*)] 1,000 units PO DAILY 11/22/16 [Last Taken Unknown] Levothyroxine [Synthroid 75 mcg (*)] 75 mcg PO DAILY06 11/22/16 [Last Taken ] [place]-3 Fatty Acids [Fish Oil 1000 mg (*)] 1,000 mg PO DAILY 11/22/16 [Last Taken Unknown] QUEtiapine FUMARATE [Seroquel 25 mg (*)] 100 mg PO HS 11/22/16 [Last Taken 11/21] lamoTRIgine [LamICTAL 100 MG (*)] 100 mg PO DAILY 11/22/16 [Last Taken 11/21/16] Acetaminophen [Tylenol 325mg (*)] 650 mg PO Q4HRS PRN #0 tab 12/04/16 [Last Taken Unknown] Pantoprazole Sodium [Protonix 40mg (*)] 40 mg PO DAILY #30 tab 12/04/16 [Last Taken Unknown] oxyCODONE IR [Oxycodone Ir (*)] 5 mg PO Q4HRS PRN #0 tab 12/04/16 [Last Taken Unknown] Discharge Medications: Refer to the Discharge Home Medication list for PRN reason. - Orders Services needed: Physical Therapy, Occupational Therapy Diet Recommendation: no restrictions on diet Diet Texture: Regular Texture Diet - Labs/Radiology CBC Date: 12/08/16 - Follow Up Care Current Providers and Referrals: Patient,NotPresent [Unknown] - As per Instructions
--- NOTE | 2016-12-04 11:14 | GDS ---
[f rep st] DISCHARGE SUMMARY DISCHARGE DIAGNOSES: 1. Pancytopenia of unclear etiology, status post bone marrow biopsy showing increased plasma cells of 12%. No other evidence for multiple myeloma. 2. Resolved shock without evidence of sepsis. 3. Ground-glass opacities on CAT scan. 4. Bipolar disorder. 5. Heme-positive stools with grade C esophagitis and a duodenal ulcer. CONSULTANTS: Dr. Joseph Barrios, Oncology/Hematology; Hannah Garrett, GI [facility]. HOSPITAL COURSE AND STAY BY PROBLEM: 1. Resolved shock: The patient was initially treated in the intensive care unit with IV fluids and pressors. Her blood pressure has since normalized. She was never found to have a source of infect ion. 2. Duodenitis and duodenal ulcer: The patient was seen by Dr. Garrett of [facility], who performed upper endoscopy on 11/24/2016. She has been started on b.i.d. Protonix. She has not had any evidence of further bleeding. 3. Pancytopenia: The patient was seen by Hematology. She had a bone marrow biopsy done on 017, which was abnormal with 12% plasma cells. She has had a further osseous workup including a bon e scan and MRI of the T-spine that did not show any evidence for multiple myeloma. Prior to dischar , it was recommended that she undergo a repeat bone marrow biopsy to help establish a diagnosis of her severe pancytopenia, which the patient adamantly is refusing. She understands that she does no t currently have a diagnosis for her severe pancytopenia, which could potentially be fatal without f urther treatment. PHYSICAL EXAMINATION: VITAL SIGNS: On day of discharge, blood pressure 124/66, pulse of 85, respir atory rate 16, O2 sat 94% on room air. GENERAL: No acute distress. HEART: S1, S2. LUNGS: Clear . ABDOMEN: Soft. EXTREMITIES: With significant purpura. DIAGNOSTICS: On day of discharge, WBC is 1.8, hemoglobin 7.8, hematocrit 24.4, platelets 33. DISCHARGE MEDICATIONS: Please refer to discharge medication reconciliation in [facility] for details. DISCHARGE INSTRUCTIONS: The patient will be transferred to the [facility] for further rehabilitation , where she should be monitored for bleeding. She is to follow up at [facility] as directed to further discuss repeat bone marrow biopsy. She should have a repeat CBC done this co [place] or Monday. She will also need followup with GI as directed, as well as a repeat CT of her chest in 3 months. Greater than 30 minutes were spent on the discharge of this patient. /[id number]/MODL
--- NOTE | 2016-12-04 11:15 | SOAPPROG ---
SOAP Progress Note Assessment/Plan: Assessment: ssessment: 71 yo woman admitted s/p fall w hypotension discovered to have pancytopenia; hx of hypothyroidism and remote hx of colon ca 1. Pancytopenia - hgb 7.8, WBC 1.8k, plts 33k. Counts are fairly stable. She doesn't require transfusion today CBC and hx concerning for underlying bone marrow process. Patient has increased plasma cells on her bone marrow biopsy at 12%. Her osseous bone survey show 3 compression fractures in T spine. No obvious lytic lesions. MRI shows compression fractures but no evidence myeloma Plan: Counts are stable, I do not think she has myeloma. I think another bone marrow biopsy would be indicated but she declines. Plan is for snf and out pt follow up. 11/23/16 12:20 11/24/16 11:31 12/03/16 11:35 12/03/16 11:37 12/03/16 11:37 12/04/16 11:13 Subjective: Feels ok Objective: Vital Signs Temp Pulse Resp BP Pulse Ox 98 F 85 16 124/66 H 94 12/04/16 08:40 12/04/16 08:40 12/04/16 08:40 12/04/16 08:40 12/04/16 08:40 Laboratory Results 12/04/16 05:00 12/04/16 05:00 12/03/16 12/04/16 12/05/16 05:59 05:59 05:59 Intake Total 30 450 Output Total 3 Balance 30 447 PT 15.2 SEC (12.0-15.0) H 11/24/16 05:10 INR 1.20 (0.83-1.16) H 11/24/16 05:10 ICD10 Worksheet Patient Problems: Problems Problem Status Onset Anemia Acute GI bleed Acute Hypotension Acute
--- NOTE | 2016-12-07 13:51 | PQFORM ---
PHYSICIAN QUERY FORM Needs Your Response This query form is being sent to you to assure this patient record is coded properly. Please respond to the question below: RETAIL SALES CONSULTANT QUESTION: Dear Dr. Sharif, Patient presented with "generalized weakness and anorexia." H&P states patients diet has been poor with poor appetite. In Dr. Barrios's 11/22 consult it is stated the patient has "some weight loss and anorexia." Documented in the Hospitalist progress notes patient had the diagnosis of "Protein calorie malnutrition evidenced by proximal muscle wasting, total protein of 3.8, albumin of 1.8." After study, can the Malnutrition be further specified? Mild protein calorie malnutrition Moderate protein calorie malnutrition Severe protein calorie malnutrition Other more appropriate diagnosis Unable to determine ___x___ Thank you GLORIA Tomlinson HIM/Coding Dept. [phone] INSTRUCTIONS FOR RESPONSE: Answer question by clicking on the "Edit Document" button. Move cursor to area below the stars. When complete, hit "Save." Click on the "Sign" button, then click "Sign" again. Type in your PIN and hit "Enter." MTDD
== END 2016-12-04 13:04 | DRG 809 ==
LOC: EDUNIT# → OBSVTOIN 11:44 → F2N 14:34 → F1N 11-28 12:37
PROVIDERS: ADMIT Internal Medicine; ATTEND Internal Medicine
DX: D61.818 Other pancytopenia (principal); N17.9 Acute kidney failure, unspecified; R57.9 Shock, unspecified; E46 Unspecified protein-calorie malnutrition; K26.9 Duodenal ulcer, unspecified as acute or chronic, without hemorrhage or perforation; K20.8 Other esophagitis; D50.0 Iron deficiency anemia secondary to blood loss (chronic); R91.8 Other nonspecific abnormal finding of lung field; F31.9 Bipolar disorder, unspecified; W19.XXXA Unspecified fall, initial encounter; E03.9 Hypothyroidism, unspecified; K57.30 Diverticulosis of large intestine without perforation or abscess without bleeding; Z85.038 Personal history of other malignant neoplasm of large intestine; Z87.891 Personal history of nicotine dependence
CPT/HCPCS: 82232-90; 82525-90; 82607-90; 83010-90; 85060-90; 86141-90; 86334-90; 86704-90; 88184-90; 88185-91; 88237-90; 88262-90; 97116-GP; 97162-GP; 97165-GO; 97530-GP; 97535-GO; A9585; G0472; G0480; G8978-GP-CL; G8979-GP-CK; G8987-GO-CJ; G8988-GO-CI; J0171; J2250; J2405; J3010; J3430; J3475; P9016; P9021; P9035; P9047; Q9967